=== PATIENT | female | born 1985 | race Caucasian/White ===

== ENCOUNTER 2024-08-25 07:31 | Emergency (ER) | payer OTHER, SELFPAY ==
[2024-08-25 07:40] VITALS: BP 119/87
[2024-08-25 08:09] VITALS: BP 122/87
[2024-08-25 08:10] VITALS: BMI 27.5
[2024-08-25 08:11] VITALS: BP 122/87
[2024-08-25] MEDS: BENADRYL 50 MG IV (08:30)
[2024-08-25] MEDS: PEPCID 20 MG IV (08:30)
--- NOTE | 2024-08-25 08:31 | ED.GENMED ---
History of Present Illness
General
Chief Complaint: Allergic Reaction
Source: patient
Exam Limitations: none
Time Seen by Provider: 08/25/24 08:10
History of Present Illness
History of Present Illness:
39-year-old female presents with diffuse pruritus. She has a history of lichen planus. She is followed by dermatology. She has been on antihistamines without relief. She states when she is take steroids for this it comes back worse. She is
instructed not to take steroids for this. She is using a topical steroid. The itchiness is over the trunk arms and legs. She denies a fever sore throat chest pain nausea or vomiting. No other complaints at this
Past History
Past History
ED Past Medical History: None
ED Past Surgical History: and Orthopedic
Social History
Tobacco: Smoker
Alcohol: Occasional
Drug: None
Personal:
Living: with family
Employment: Employed
Family History
Family History: Other (n/c)
Phy Exam
Physical Exam
Physical Exam:
General: Well-appearing female no acute respiratory distress
HEENT: Normocephalic atraumatic
Heart: Regular rate and rhythm
Lungs: Clear no wheeze
Skin: Covered with excoriation evans over the back arms and legs. Small pruritic papules noted over the elbows and legs
Extremities: No cyanosis or edema
Course
Orders/Labs/Results
Orders:
Orders
08/25/24 08:26
Diphenhydramine [Benadryl] 50 mg IV NOW STA
Famotidine [Pepcid] 20 mg IV NOW STA
08/25/24 09:12
Lorazepam [Ativan] 1 mg IV NOW STA
08/25/24 11:19
Dexamethasone Sod Phosphate [Decadron] 10 mg IV NOW STA
Diphenhydramine [Benadryl] 25 mg IV NOW STA
Vital Signs
Initial and Last Documented VS:
Initial Vital Signs
Temp Pulse Resp BP Pulse Ox
98.2 F 110 16 119/87 98
08/25/24 07:40 08/25/24 07:40 08/25/24 07:40 08/25/24 07:40 08/25/24 07:40
Last Documented Vital Signs
Temp Pulse Resp BP Pulse Ox
98.6 F 81 20 122/87 100
08/25/24 08:11 08/25/24 08:11 08/25/24 08:11 08/25/24 08:11 08/25/24 08:15
MDM/Problems Addressed
Differential Diagnosis Includes:
Pruritus history of lichen planus. This could be acute exacerbation of her existing condition versus hives. No fever to suggest infectious source. Patient is limited to antihistamines. Will try Benadryl and Pepcid
*Critical Care Note
Total Time (30-74mins, 75-104mins- exclusive of procedures): Not Applicable
Update Note
Update Note:
Patient with minimal relief after IV Benadryl and Pepcid. Discussed with patient's dermatology of record. Given lack of results with antihistamines we did go ahead and provide a low-dose steroid prescription for her. She will take 10 mg of
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
ED Attending Note
-
Portions of this chart may have been created with voice recognition software.� Occasional wrong word or��sound alike� substitutions may have occurred due to the inherent limitations of voice recognition software.
Discharge Plan
Departure
Patient Disposition: Home (Routine Discharge)
Date of Disposition: 08/25/24
Time of Disposition: 11:52
Patient with high blood pressure during this ER visit?: No
Discharge Problem:
Pruritic condition
Instructions: Hives (DC)
Prescriptions:
New
prednisone 10 mg tablet
10 mg PO DAILY Qty: 14 0RF
No Action
ibuprofen 600 mg tablet
600 mg PO PRN PRN (Reason: pain)
sertraline [Zoloft] 100 mg Tablet
100 mg PO HS
bupropion HCl [Wellbutrin] 75 mg Tablet
75 mg PO DAILY
hydroxychloroquine [Plaquenil] 200 mg Tablet
200 mg PO HS
Referrals:
Peter Grant DO [Family Provider] -
Activity Restrictions/Additional Instructions:
Continue with antihistamines. Use prednisone as directed. Follow-up with your cattle dehorner
Interventions
Interventions:
*Risk Screen - Suicide Last Done: 08/25/24 07:40
*General Assessment Last Done: 08/25/24 08:11
*Neglect/Abuse Screening Last Done: 08/25/24 07:40
*ED- Fall Risk Assessment Last Done: 08/25/24 08:11
*ED COVID-19 Vaccine History Last Done: 08/25/24 08:11
ED- Cardiac Assessment Last Done: 08/25/24 08:11
ED- Pulmonary Assessment Last Done: 08/25/24 08:11
ED-Skin Assessment Last Done: 08/25/24 08:11
Discharge Date and Time
Print Language: DJIBOUTIAN
[2024-08-25 08:33] VITALS: BP 129/107
[2024-08-25 09:00] VITALS: BP 114/91
[2024-08-25] MEDS: ATIVAN 1 MG IV (09:21)
[2024-08-25] MEDS: DECADRON 10 MG IV (11:23)
[2024-08-25] MEDS: BENADRYL 25 MG IV (11:23)
[2024-08-25 12:06] VITALS: BP 131/82
== END 2024-08-25 12:09 | disposition home or self-care (01) ==
LOC: EMR 07:31
PROVIDERS: EMERGENCY PHYSICIAN Emergency Medicine; FAMILY PHYSICIAN Family Medicine
DX: L29.9 Pruritus, unspecified (principal); F17.200 Nicotine dependence, unspecified, uncomplicated; L43.9 Lichen planus, unspecified
CPT/HCPCS: 96374; 96375; 96376; 99284

== ENCOUNTER 2024-10-27 12:12 | Inpatient (IN) | payer OTHER, SELFPAY ==
[2024-10-27 06:49] VITALS: BP 109/65
[2024-10-27 07:19] VITALS: BMI 29.9
[2024-10-27] MEDS: TYLENOL 1000 MG PO (07:28)
[2024-10-27 07:31] LABS: COVID-19 Antigen Negative (Negative)
[2024-10-27] MEDS: TORADOL 15 MG IV ×2 (08:23→15:36)
[2024-10-27] MEDS: ZOFRAN 4 MG IV (08:24)
[2024-10-27 08:58] LABS: Lactic Acid 0.8 mmol/L (0.7-2.0)
[2024-10-27 09:00] LABS: Hemoglobin 12.9 g/dL (12.0-16.0); Mean Corp Hgb Conc. 33.1 g/dL (33.0-37.0); Mean Corpuscular Volume 84.8 fL (81.0-99.0); Mean Platelet Volume 10.1 fL (7.4-10.4); Platelet Count 230 10^3/uL (130-400); Red Cell Dist. Width 13.9 % (11.5-14.5); White Blood Cell Count 12.5 10^3/uL (4.8-10.8)
[2024-10-27 09:01] LABS: HCG, Serum Qualitative Screen Negative
[2024-10-27 09:03] LABS: ALT (SGPT) 22 U/L (0-35); AST (SGOT) 19 U/L (14-36); Albumin 4.2 g/dl (3.5-5.0); Alkaline Phosphatase 57 U/L (38-126); Blood Urea Nitrogen 10 mg/dl (7-17); Calcium 8.7 mg/dl (8.4-10.2); Carbon Dioxide 24 mmol/L (22-30); Chloride 109 mmol/L (98-107); Estimated Creatinine Clearance 102 ml/min; Glucose 115 mg/dl (70-99); Potassium 3.8 mmol/L (3.5-5.1); Sodium 137 mmol/L (135-145); Total Bilirubin 0.6 mg/dl (0.2-1.3); Total Protein 6.6 g/dl (6.3-8.2); eGFR > 60.00
--- NOTE | 2024-10-27 09:18 | ED.GENMED ---
History of Present Illness
General
Chief Complaint: Abdominal Symptoms
Time Seen by Provider: 10/27/24 07:31
History of Present Illness
History of Present Illness:
39-year-old female with no significant past medical history presenting to the emergency department for abdominal pain. Patient reports on evening she ate Chipotle and has since then had abdominal pain. She initially had some vomiting and
diarrhea, however now has been constipated. Reports history of cholecystectomy. Also reports fever, chills, headache. Denies known sick contacts. Denies any urinary complaints. She is currently on her menstrual cycle. Denies chest pain or
difficulty breathing. Denies additional complaints.
Past History
Past History
ED Past Medical History: None
ED Past Surgical History: and Orthopedic
Social History
Tobacco: Smoker
Alcohol: Occasional
Drug: None
Personal:
Living: with family
Employment: Employed
Family History
Family History: Other (n/c)
Phy Exam
Physical Exam
Physical Exam:
General: Well-appearing, no clinical signs of dehydration, nontoxic and in no acute distress
HEENT: protecting airway
Neck: appears supple
CV: Normal heart rate, regular rhythm
Resp: No accessory muscle use, no increased work of breathing
Abd: Soft and non-distended, generalized tenderness to the abdomen, no rebound or guarding.
Extremities: No deformities, no swelling
Neuro: alert, no focal neurologic deficit
: deferred
Rectal: deferred
Psych: Normal affect
Skin: Intact
Sepsis
Sepsis Screening
Sepsis Assessment: Sepsis
Sepsis Screen
Sepsis Screen: Sepsis
Date: 10/27/24
Time: 14:54
Course
Orders/Labs/Results
Orders:
Orders
10/27/24 06:59
COVID-19 Antigen Urgent
Source: Nasal Swab
Influenza A+B Rapid Molecular Urgent
ILDEFONSO Source: Nasal Swab
Specimen Description:
10/27/24 07:26
Acetaminophen [Tylenol] 1,000 mg .ROUTE .STK-MED ONE
10/27/24 07:27
Acetaminophen [Tylenol] 1,000 mg PO NOW STA
10/27/24 07:52
Ketorolac [Toradol] 15 mg IV NOW STA
Ondansetron Injectable [Zofran] 4 mg IV NOW STA
10/27/24 07:53
CT Abd/pelvis W Iv Cont Urgent
Comment:
Reason For Exam: generalized pain and fever after chipotle
Test Result ONCE
10/27/24 08:23
Complete Blood Count/With Diff Urgent
Comprehensive Metabolic Panel Urgent
HCG, Serum Qualitative Screen Urgent
Lactic Acid Q4H
Comment: CANCEL 2nd LACTIC ACID IF 1st LACTIC ACID IS LESS THAN 2
Lipase Urgent
Manual Differential Urgent
10/27/24 Lunch
Regular
At Your Request: Full Participation
10/27/24 10:43
Urinalysis Reflex To Culture Urgent
Date Specimen was Collected: 10/27/24
Time Specimen was Collected: 10:34
Urine Microscopic Reflex Cult Urgent
Urine Culture Urgent
ILDEFONSO Source: U
Specimen Description:
Date Specimen was Collected: 10/27/24
Time Specimen was Collected: 10:34
10/27/24 11:07
Cefepime HCl [Maxipime] 2,000 mg IV NOW STA
10/27/24 11:44
Lactated Ringers [Lr] 1,000 ml IV BOLUS
10/27/24 11:47
Blood Culture Q30M
ILDEFONSO Source: Blood/Venous
Specimen Description:
10/27/24 11:49
Blood Culture Q30M
ILDEFONSO Source: Blood/Venous
Specimen Description:
10/27/24 11:57
Admit/Transfer Patient As Directed
Co-Sign Provider:
Level of Care: Inpatient admission
Assign to:: Medical/Surgical
Physician / Group: Laverne
Diagnosis: Sepsis, pyelonephritis
Reason for Hospitalization: IVF, IV antibiotics
Expected length of stay greater than two midnights?: Yes
ELOS- Estimated Length of Stay in days: 2
I certify the patient meets the requirements for IP care: Yes
PRN Pain Medication Management As Directed
May give lesser potent ordered pain med per pt: Yes
preference::
Protocol:: Medication orders for pain may be administered in a
manner that supports deferring to patient preference
when the pt is:
- Requesting an ordered lesser potent pain medication.
Least to most potent pain medications are defined
as: acetaminophen < NSAID < tramadol < opioids
(morphine, oxycodone, hydromorphone).
- Requesting a lesser dose of the same medication IF
ORDERED.
- Requesting a less intrusive route of administration
if both routes are prescribed by the provider (PO <
IV).
10/27/24 12:01
Code Status As Directed
Resuscitation Status: Full Code
10/27/24 13:00
Lactated Ringers [Lr] 1,000 ml IV BOLUS
10/27/24 13:08
Acetaminophen [Tylenol] 650 mg PO Q6HPRN PRN
Ketorolac [Toradol] 15 mg IV Q6HPRN PRN
Lactated Ringers [Lr] 1,000 ml IV 100 mls/hr
Ondansetron Injectable [Zofran] 4 mg IV Q6HPRN PRN
10/27/24 13:08
Activity As Directed
Activity Level: Ambulate
DX Deep Vein Thrombosis Video Routine
10/27/24 18:00
Enoxaparin Sodium [Lovenox] 40 mg SC QPM
10/27/24 22:00
Cefepime HCl [Maxipime] 2,000 mg IV Q12H
Abnormal Lab Results
10/27/24 10/27/24
08:23 10:43
WBC 12.5 H 10^3/uL
(4.8-10.8)
Abs Neuts (Manual) 10.6 H 10^3/uL
(1.4-6.5)
Segmented Neutrophils 85 H %
(42-75)
Lymphocytes (Manual) 10 L %
(20-51)
Chloride 109 H mmol/L
(98-107)
Glucose 115 H mg/dl
(70-99)
Urine Ketones 1+ A
(Negative)
Ur Occult Blood Reflex 4+ A
(Negative)
Urine Nitrite (Reflex) Positive A
(Negative)
Leukocyte Esterase Rfl 3+ A
(Negative)
Urine RBC 3-6 A /HPF
(0-2)
Urine WBC (Reflex) 26-30 A /HPF
(0-5)
Urine Bacteria (Reflex) Many A
(Negative)
Urine Albumin (Reflex) 2+ A
(Neg - Trace)
10/27/24 08:23
10/27/24 08:23
Vital Signs
Initial and Last Documented VS:
Initial Vital Signs
Temp Pulse Resp BP Pulse Ox
102.1 F H 112 22 109/65 98
10/27/24 06:49 10/27/24 06:49 10/27/24 06:49 10/27/24 06:49 10/27/24 06:49
Last Documented Vital Signs
Temp Pulse Resp BP Pulse Ox
100.1 F 115 21 127/86 100
10/27/24 14:39 10/27/24 13:29 10/27/24 13:29 10/27/24 13:29 10/27/24 13:29
MDM/Problems Addressed
MDM/Problems Addressed:
39-year-old female presenting for abdominal pain and fever. Vital signs on arrival significant for fever and tachycardia.
On exam patient is in no acute distress. On exam, patient is no acute distress, generalized discomfort to the abdomen, right greater than left. Suspect likely enteritis given patient's symptoms, preceded by eating food. However in the setting of
fever, additional intra-abdominal process is a consideration. Will plan for laboratory analysis and CT imaging. IV fluids, Toradol, Zofran administered for symptoms.
11:00 -lactate within normal limits. Urine does show evidence of infection and CT is consistent with a right-sided pyelonephritis. Will start patient on antibiotics. Patient offered admission versus outpatient antibiotics for her symptoms and
presenting vital signs. Patient notes that she has been unable to tolerate food and liquid by mouth given her symptoms, persistent fevers. Lactate within normal limits, mild leukocytosis, lower suspicion for sepsis. However given patient's
symptoms, feel reasonable for admission for IV antibiotics.
*Critical Care Note
Total Time (30-74mins, 75-104mins- exclusive of procedures): Not Applicable
ED Attending Note
-
Portions of this chart may have been created with voice recognition software.� Occasional wrong word or��sound alike� substitutions may have occurred due to the inherent limitations of voice recognition software.
Discharge Plan
Departure
Patient Disposition: Admit
Date of Disposition: 10/27/24
Time of Disposition: 11:15
Presentation/result/management discussed w/ accepting MD/DO: Hospitalist
Patient with high blood pressure during this ER visit?: No
Condition: Fair
Discharge Problem:
Pyelonephritis of right kidney
Interventions
Interventions:
*Risk Screen - Suicide Last Done: 10/27/24 06:49
*General Assessment Last Done: 10/27/24 07:19
*Neglect/Abuse Screening Last Done: 10/27/24 07:19
*ED- Fall Risk Assessment Last Done: 10/27/24 07:19
*ED COVID-19 Vaccine History Last Done: 10/27/24 13:15
*Nursing Disposition Last Done: 10/27/24 12:58
QC-Uoycpr-Sjztpqcgqa Assessment Last Done: 10/27/24 07:19
Discharge Date and Time
Discharge Date/Time: 10/27/24 12:59
[2024-10-27 09:27] LABS: Absolute Neutrophils -Man Diff 10.6 10^3/uL (1.4-6.5); Band Neutrophils 0 % (0-3); Lymphocytes 10 % (20-51); Monocytes 5 % (2-9); Normal RBC Morphology Yes; Platelets Checked Yes; Segmented Neutrophils 85 % (42-75); Total Cells Counted 100
[2024-10-27 09:40] LABS: Lipase 44 U/L (23-300)
[2024-10-27 10:51] LABS: Urine Albumin 2+ (Neg - Trace); Urine Bilirubin Negative (Negative); Urine Character Clear (Clear); Urine Color Yellow; Urine Glucose Negative (Negative); Urine Ketone 1+ (Negative); Urine Leukocyte 3+ (Negative); Urine Nitrite Positive (Negative); Urine Occult Blood 4+ (Negative); Urine Urobilinogen Negative (Neg - 1+)
[2024-10-27 11:05] LABS: Urine Bacteria Many (Negative); Urine White Cell 26-30 /HPF (0-5)
[2024-10-27] MEDS: MAXIPIME 2000 MG IV ×2 (11:49→22:01)
[2024-10-27 11:57] VITALS: BP 107/80
[2024-10-27] MEDS: LR 1000 IV ×3 (11:59→23:23)
--- NOTE | 2024-10-27 12:04 | HPS.HSE ---
Family Physician
-
Family Physician: Aryan Beaver
Chief Complaint
-
Abdominal pain, nausea and vomiting
History of Present Illness
39-year-old female here complaining of abdominal pain, nausea and vomiting.
Symptoms started after eating [place] food.
Has a history of pyelonephritis, last episode was several years ago.
Denies any urinary complaints. Started developing right-sided flank pain in the past 24 hours. Associated fevers.
Medical History
Past Medical History
Past Medical History: Reports Other
Additional Past Medical History:
Pyelonephritis
Anxiety disorder
Lichen planus
Past Surgical History: Reports Gynocological and Orthopedic
Social History
Tobacco: Smoker
Alcohol: Occasional
Drug: None
Personal:
Living: With Family
Employment: Employed
Family History
Family History: Not pertinent
Allergies / Home Medications
Allergies reflects when Allergies were last updated in [facility].
Home Medications with original date entered in [facility]
Allergy/Medication List:
Allergies
Allergy/AdvReac Type Severity Reaction Status Date / Time
cefazolin sodium (From Ancef) Allergy Swelling Verified 10/27/24 06:49
sulfamethoxazole (From Allergy Anaphylaxis Verified 10/27/24 06:49
Bactrim)
trimethoprim (From Bactrim) Allergy Anaphylaxis Verified 10/27/24 06:49
Home Medications
bupropion HCl 75 mg tablet 75 mg PO DAILY 02/22/23
hydroxychloroquine 200 mg tablet (Plaquenil) 200 mg PO HS 02/22/23
ibuprofen 600 mg tablet 600 mg PO PRN PRN pain 02/22/23
sertraline 100 mg tablet (Zoloft) 100 mg PO HS 02/22/23
prednisone 10 mg tablet 10 mg PO DAILY #14 tabs 08/25/24
Review of Systems
-
History Source: Patient
A 12 point ROS was completed and negative except as noted: Yes
Physical Exam
Vital Signs
Vital Signs
Temp Pulse Resp BP Pulse Ox
98.5 F 100 16 107/80 100
10/27/24 09:49 10/27/24 11:57 10/27/24 11:57 10/27/24 11:57 10/27/24 11:57
Physical Exam
General: Well Developed, Well Nourished, Appears in Distress and Pain
HEENT: NormoCephalic, Anicteric and Moist mucous membranes
Respiratory: Clear
Cardiac: S1/S2 and Regular Rhythm
Breast: Deferred by me
GI: Soft, Non Tender and Non Distended
Musculoskeletal: No Clubbing, No Cyanosis and No Edema
Skin: Warm and Dry
Neuro: AO x 3
Hematologic/Lymphatic: No Lymphadenopathy
Psych: Calm
Laboratory Results
-
10/27/24 08:23
10/27/24 08:23
Laboratory Results
Lactic Acid Cancelled 10/27/24 12:00
Total Bilirubin 0.6 mg/dl (0.2-1.3) 10/27/24 08:23
AST 19 U/L (14-36) 10/27/24 08:23
ALT 22 U/L (0-35) 10/27/24 08:23
Alkaline Phosphatase 57 U/L (38-126) 10/27/24 08:23
Lipase 44 U/L (23-300) 10/27/24 08:23
Impression/Plan
-
Sepsis due to acute right pyelonephritis -has had recurrent right-sided pyelonephritis. Last episode was several years ago.
Hemodynamically stable. Admit to [facility]. Give IV fluid bolus for sepsis. Continue antibiotics. Check cultures.
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 Recommend outpatient follow-up with her urologist. She was seeing a urologist at [facility]. Discussed with patient.
Continue analgesics, antiemetics.
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
Obesity due to excess calories
Full code
[2024-10-27 13:12] VITALS: BMI 29.2
[2024-10-27] MEDS: TYLENOL 650 MG PO ×2 (13:26→18:37)
[2024-10-27 13:29] VITALS: BP 127/86
--- NOTE | 2024-10-27 13:40 | PTCARENOTE ---
Pt. brought up from ED via stretcher and admitted to . Admission and assessment complete. Pt. tearful and complaining of 9/10 pain to her RLQ radiating to her back. Pt. VS taken upon arrival to and was found to be febrile with a temp of 102.9
and HR 115. PRN Tylenol and dilaudid administered. IVF bolus 1 of 2 running. Pt. states that her pain is improving after receiving pain meds and she feels less 'feverish'. Repeat temp checked after 1 hour and was 100.1. Plan of care ongoing.
[2024-10-27] MEDS: DILAUDID 0.5 MG IV ×4 (13:45→23:28)
[2024-10-27 15:00] VITALS: BP 113/71
--- NOTE | 2024-10-27 15:03 | CM ---
CM met with pt bedside
Pt and her 8 y/o son reside with her mother and father in a 2 [address]
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
Pt is indep, no DMEs
Denies financial insecurities
PCP- Aryan Beaver
Rx- [facility]
Discharge Disposition- anticipate home no needs
[2024-10-27] MEDS: LR IV (20:05)
[2024-10-27] MEDS: STERILE WATER FOR INJECTION 10 ML IV (22:01)
[2024-10-27] MEDS: TORADOL 30 MG IV (22:01)
[2024-10-27 23:33] VITALS: BP 96/82
[2024-10-28 00:56] VITALS: BP 97/57
[2024-10-28] MEDS: TYLENOL 650 MG PO ×3 (03:04→18:21)
[2024-10-28 03:09] VITALS: BP 115/69
[2024-10-28] MEDS: DILAUDID 0.5 MG IV ×2 (03:32→07:32)
[2024-10-28] MEDS: TORADOL 30 MG IV (05:05)
[2024-10-28 07:37] VITALS: BP 98/61
--- NOTE | 2024-10-28 08:46 | W.PN.HOSP.TC ---
Today's Communication/Plan
-
Check labs
Continue antibiotics
Await cultures
Increase analgesics
Urology consult
Assessment / Plan
Assessment / Plan
Gen-AAOx3, in mild distress from pain
HEENT-NC, AT, anicteric, clear oral mm
Neck-supple
CV-reg, no M, +S1/S2
Lungs-clear B/L
Abd-soft, NT, ND, right flank tenderness
Ext-no edema
Musculoskeletal-no cyanosis, clubbing
Skin-warm and dry
Neuro-grossly non-focal
Psych-calm, cooperative
Sepsis due to acute right pyelonephritis - has had recurrent right-sided pyelonephritis. Last episode was several years ago.
Cultures pending. Will change to IV or ertapenem. Patient requesting urology consultation. Abdominal exam is benign but she does have right flank tenderness.
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 Recommend outpatient follow-up with her urologist. She was seeing a urologist at [facility]. Discussed with patient.
Continue analgesics, antiemetics.
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
Migraine headache -will change Toradol to ibuprofen. Continue antiemetics. She has a sulfa allergy, will avoid Compazine.
Obesity due to excess calories
Full code
Anticipated Discharge: > 48 hours
Subjective/Interval History
-
Date of Service: October 28, 2024
Patient seen and examined. Complaining of 10 out of 10 right-sided abdominal and flank pain. Headache.
Objective Data
-
Labs:
Laboratory Results
10/28/24
08:25
WBC Pending
Hgb Pending
Hct Pending
Plt Count Pending
Sodium Pending
Potassium Pending
Chloride Pending
Carbon Dioxide Pending
BUN Pending
Creatinine Pending
Glucose Pending
Calcium Pending
Total Bilirubin Pending
AST Pending
ALT Pending
Alkaline Phosphatase Pending
Vital Signs:
Vital Signs
Temp Pulse Resp BP Pulse Ox
99.4 F 95 14 98/61 99
10/28/24 07:37 10/28/24 07:37 10/28/24 07:37 10/28/24 07:37 10/28/24 07:37
I&O
10/27/24 10/28/24 10/29/24
06:59 06:59 06:59
Intake Total 570 / 570
Balance 570 / 570
Review of Systems
-
History Source: Patient
All other systems: Reviewed and negative
[2024-10-28 08:54] LABS: ALT (SGPT) 37 U/L (0-35); AST (SGOT) 26 U/L (14-36); Albumin 3.2 g/dl (3.5-5.0); Alkaline Phosphatase 48 U/L (38-126); Blood Urea Nitrogen 7 mg/dl (7-17); Calcium 8.3 mg/dl (8.4-10.2); Carbon Dioxide 24 mmol/L (22-30); Chloride 112 mmol/L (98-107); Estimated Creatinine Clearance 101 ml/min; Glucose 115 mg/dl (70-99); Sodium 139 mmol/L (135-145); Total Bilirubin 0.5 mg/dl (0.2-1.3); Total Protein 5.4 g/dl (6.3-8.2); eGFR > 60.00
[2024-10-28 09:35] LABS: % Basophils 0.3 % (0-2); % Eosinophils 0.2 % (0-6); % Immature Granulocytes 0.5 % (0-0.5); % Lymphocytes 12.8 % (20.5-51.1); % Monocytes 10.8 % (1.7-9.3); % Neutrophils 75.4 % (42.2-75.2); Absolute Immature Granulocytes 0.1 10^3/uL (0-0.05); Absolute Lymphocytes 1.4 10^3/uL (1.2-3.4); Absolute Monocytes 1.2 10^3/uL (0.1-0.6); Absolute Neutrophils 8.4 10^3/uL (1.4-6.5); Hematocrit 38.6 % (37.0-47.0); Hemoglobin 12.7 g/dL (12.0-16.0); Mean Corp Hgb Conc. 32.9 g/dL (33.0-37.0); Mean Corpuscular Hgb 28.2 pg (27.0-31.0); Mean Corpuscular Volume 85.6 fL (81.0-99.0); Mean Platelet Volume 10.2 fL (7.4-10.4); Nucleated Red Blood Cells % 0 %; Platelet Count 166 10^3/uL (130-400); Red Blood Cell Count 4.51 10^6/uL (4.20-5.40); Red Cell Dist. Width 13.9 % (11.5-14.5); White Blood Cell Count 11.2 10^3/uL (4.8-10.8)
[2024-10-28] MEDS: ZOFRAN 4 MG IV (09:59)
[2024-10-28] MEDS: MOTRIN 800 MG PO ×2 (09:59→16:01)
[2024-10-28] MEDS: INVANZ 60 MG IV (10:08)
[2024-10-28] MEDS: LR 1000 IV ×2 (10:11→20:49)
--- NOTE | 2024-10-28 11:24 | CONS.URO ---
Consultation
-
Date/Time Consultation Performed: 1124 10/28/24
Performing Provider: Peffer
Reason for Consultation: Pyelonephritis
Medical History
History of Present Illness
39F history of recurrent UTIs in the past
Prior history of known duplicated R collecting system and had some prior workup for reflux years ago (negative)
Currently followed by a urologist at [facility]
Last episode of pyelo was a few years ago and was on post coital antibiotic ppx which she has since stopped
Admitted with febrile UTI and R pyelonephritis
CT showed duplicated R collecting system with some cortical scarring and calyceal diverticulum
No hydronephrosis or obstructive uropathy
Past Medical History
Past Medical History: Other (Pyelonephritis Anxiety disorder Lichen planus)
Past Surgical History: Gynocological and Orthopedic
Social History
Tobacco: Smoker
Alcohol: Occasional
Living: With Family
Family History
Family History: Reviewed & Not Pertinent
Allergies/Home Medications
Allergies
Allergy/AdvReac Type Severity Reaction Status Date / Time
cefazolin sodium (From Ancef) Allergy Swelling Verified 10/27/24 06:49
sulfamethoxazole (From Allergy Anaphylaxis Verified 10/27/24 06:49
Bactrim)
trimethoprim (From Bactrim) Allergy Anaphylaxis Verified 10/27/24 06:49
Home Medications
�Medication �Instructions �Recorded �Confirmed �Type
bupropion HCl 75 mg tablet 75 mg PO DAILY 02/22/23 10/27/24 History
hydroxychloroquine 200 mg tablet 200 mg PO HS 02/22/23 10/27/24 History
(Plaquenil)
acetaminophen 500 mg tablet 500 mg PO DAILYPRN PRN mild pain 10/27/24 10/27/24 History
ibuprofen 200 mg tablet 400 mg PO DAILYPRN PRN mild pain 10/27/24 10/27/24 History
norethindrone (contraceptive) 0.35 0.35 mg PO DAILY 10/27/24 10/27/24 History
mg tablet (Jencycla)
omeprazole 20 mg capsule,delayed 20 mg PO DAILYPRN PRN gerd 10/27/24 10/27/24 History
release
peppermint oil 90 mg 90 mg PO DAILYPRN PRN IBS 10/27/24 10/27/24 History
capsule,delayed,extended release
(IBgard)
sertraline 25 mg tablet 25 mg PO HS 10/27/24 10/27/24 History
Physical Exam
Vital Signs
Vital Signs
Temp Pulse Resp BP Pulse Ox
102.2 F H 95 14 98/61 99
10/28/24 10:58 10/28/24 07:37 10/28/24 07:37 10/28/24 07:37 10/28/24 07:37
Lab / Testing Results
Laboratory Results
10/28/24 09:08
10/28/24 08:25
Physical Exam
General: Well Developed, Well Nourished and No Apparent Distress
Respiratory: Clear and Non Labored Respirations
GI: Soft and Non Tender
Neuro: AO x 3
Psych: Calm and Intact Judgement
Assessment / Plan
-
39F with recurrent UTI and R pyelonephritis
Duplicated R renal collecting system
- No obstructive uropathy requiring acute surgical intervention
- Pyelonephritis management per hospitalist - would recommend 10 day total abx course for complicated UTI
- Discussed she may benefit from some additional testing of the R kidney to ensure it drains adequately but I don't suspect she would need any reconstructive procedures
- Recommend follow up with her current urologist to discuss this as well as resuming post coital prophylaxis
Please reach out if any additional input needed
Data Reviewed
-
CT Scan: Image personally visualized and interpreted
Lab Data: Labs Reviewed
[2024-10-28] MEDS: DILAUDID 1 MG IV ×3 (11:58→20:49)
[2024-10-28] MEDS: WELLBUTRIN REGULAR RELEASE 75 MG PO (12:12)
[2024-10-28 14:58] VITALS: BP 96/67
[2024-10-28] MEDS: LR IV (18:21)
[2024-10-28] MEDS: PLAQUENIL 200 MG PO (22:19)
[2024-10-28] MEDS: ROXICODONE 5 MG PO (22:19)
[2024-10-28 23:00] VITALS: BP 110/70
--- NOTE | 2024-10-29 02:04 | PTCARENOTE ---
patient was asked and offered supplies for hygiene. But the patient stated that they took a shower earlier in the day, so they prefer to do hygiene the next day.
[2024-10-29 07:18] VITALS: BP 123/81
[2024-10-29 07:41] LABS: % Basophils 0.2 % (0-2); % Eosinophils 0.6 % (0-6); % Immature Granulocytes 0.5 % (0-0.5); % Lymphocytes 7.2 % (20.5-51.1); % Neutrophils 83.5 % (42.2-75.2); Absolute Eosinophils 0.1 10^3/uL (0-0.7); Absolute Immature Granulocytes 0.1 10^3/uL (0-0.05); Absolute Lymphocytes 0.8 10^3/uL (1.2-3.4); Absolute Monocytes 0.9 10^3/uL (0.1-0.6); Hematocrit 34.6 % (37.0-47.0); Hemoglobin 11.4 g/dL (12.0-16.0); Mean Corp Hgb Conc. 32.9 g/dL (33.0-37.0); Mean Corpuscular Hgb 27.6 pg (27.0-31.0); Mean Corpuscular Volume 83.8 fL (81.0-99.0); Mean Platelet Volume 10.7 fL (7.4-10.4); Nucleated Red Blood Cells % 0 %; Platelet Count 189 10^3/uL (130-400); Red Blood Cell Count 4.13 10^6/uL (4.20-5.40); Red Cell Dist. Width 13.8 % (11.5-14.5); White Blood Cell Count 10.8 10^3/uL (4.8-10.8)
[2024-10-29] MEDS: MOTRIN 800 MG PO (07:48)
[2024-10-29] MEDS: DILAUDID 1 MG IV ×2 (07:48→11:52)
[2024-10-29] MEDS: WELLBUTRIN REGULAR RELEASE 75 MG PO (07:49)
[2024-10-29] MEDS: ZOLOFT 25 MG PO (07:49)
[2024-10-29] MEDS: TYLENOL 650 MG PO (07:49)
[2024-10-29] MEDS: INVANZ 60 MG IV (08:56)
--- NOTE | 2024-10-29 12:16 | W.PN.HOSP.TC ---
Today's Communication/Plan
-
Continue with IV ertapenem for now
Ask ID for input
Trend fever curve
Assessment / Plan
Assessment / Plan
Gen-AAOx3, in mild distress from pain
HEENT-NC, AT, anicteric, clear oral mm
Neck-supple
CV-reg, no M, +S1/S2
Lungs-clear B/L
Abd-soft, NT, ND, right flank tenderness
Ext-no edema
Musculoskeletal-no cyanosis, clubbing
Skin-warm and dry
Neuro-grossly non-focal
Psych-calm, cooperative
#Sepsis due to acute right pyelonephritis - has had recurrent right-sided pyelonephritis. Last episode was several years ago.
IV ertapenem. Patient requesting urology consultation. Abdominal exam is benign but she does have right flank tenderness.
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 Recommend outpatient follow-up with her urologist. She was seeing a urologist at [facility]. Discussed with patient.
Continue analgesics, antiemetics.
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
Leukocytosis resolved
Urine culture with E. coli oneal sensitivity. Patient continue to spike fever on ertapenem- will ask ID for input. Unclear if will require IV antibiotics on discharge or not.
#Migraine headache -will change Toradol to ibuprofen. Continue antiemetics. She has a sulfa allergy, will avoid Compazine.
Obesity due to excess calories
Full code
Anticipated Discharge: 24 - 48 hours
Subjective/Interval History
-
Date of Service: October 29, 2024
states of R side flank pain
spiked fever earlier this morning again
Objective Data
-
Labs:
Laboratory Results
10/29/24
07:03
WBC 10.8
Hgb 11.4 L
Hct 34.6 L
Plt Count 189
Vital Signs:
Vital Signs
Temp Pulse Resp BP Pulse Ox
98.2 F 110 19 123/81 99
10/29/24 11:06 10/29/24 07:18 10/29/24 07:18 10/29/24 07:18 10/29/24 07:18
I&O
10/28/24 10/29/24 10/30/24
06:59 06:59 06:59
Intake Total 570 / 570 2580 / 2580
Balance 570 / 570 2580 / 2580
[2024-10-29] MEDS: DILAUDID 1.5 MG IV ×3 (13:33→21:37)
[2024-10-29 15:22] VITALS: BP 96/59
--- NOTE | 2024-10-29 16:45 | CM ---
CM continues to follow for discharge planning. Pt currently on IV ertapenem; ID consult requested.
Plan: Anticipate discharge to home; watch for IV ABX needs to coordinate if needed at home when discharged.
[2024-10-29] MEDS: ROXICODONE 5 MG PO (19:52)
[2024-10-29] MEDS: PLAQUENIL 200 MG PO (21:38)
[2024-10-29 23:00] VITALS: BP 104/69
[2024-10-30 07:27] VITALS: BP 113/76
[2024-10-30] MEDS: DILAUDID 1.5 MG IV ×3 (07:41→20:02)
[2024-10-30] MEDS: WELLBUTRIN REGULAR RELEASE 75 MG PO (09:16)
[2024-10-30] MEDS: ZOLOFT 25 MG PO (09:16)
[2024-10-30] MEDS: ROXICODONE 5 MG PO ×2 (10:06→19:09)
[2024-10-30] MEDS: INVANZ 60 MG IV (10:06)
--- NOTE | 2024-10-30 12:07 | CON.ID ---
Consultation
-
Date/Time Consultation Requested: 10/29/24 11:36
Date/Time Consultation Performed: 10/30/24 12:07
Requesting Provider: Dr Bess
Performing Provider: Dr Burk
Reason for Consultation: UTI, allergies
Chief Complaint / Past History
Chief Complaint
Abdominal pain, nausea and vomiting
History of Present Illness
Ms Lund is a 39 year old female with history of recurrent UTIs and previous pyelonephritis, also stated allergies to cefazolin and bactrim who presented here on for abdominal pain, nausea and vomiting which she related to eating citizen of [place] food.
Then she progressed to developing right sided flank pain and fevers. No dysuria, urgency or frequency. With fevers and flank pain she presented to .
Since arrival here she was initially febrile to a tmax of 102.8, bp overall stable, wbc initially 12.5 now 10.8, hbgb 12.9, plt 230, L shift noted which has persisted, na 137, cr 0.7, lfts wnl, ua with 26-30 wbc/hpf and many bacteria, ct a/p with IV
contrast: acute R pyleonephritis, cortical scarring and lower pole calyceal diverticulum, duplicated R renal collecting system, currently on ertapenem, ID is consulted for assistance with management.
Past History
Additional Past Medical History:
Pyelonephritis
Anxiety disorder
Lichen planus
Additional Past Surgical History:
Gynocological and Orthopedic
Allergy History:
cefazolin sodium (From Ancef) Allergy (Verified 10/27/24 06:49)
Swelling
sulfamethoxazole (From Bactrim) Allergy (Verified 10/27/24 06:49)
Anaphylaxis
trimethoprim (From Bactrim) Allergy (Verified 10/27/24 06:49)
Anaphylaxis
Medications Reviewed: Yes
Social History
Tobacco: Smoker
Alcohol: Occasional
Drug: None
Family History
Family History: Not Pertinent
Review of Systems
Review of Systems
General: Fever and Chills
All systems: All other systems were reviewed and were negative
Vital Signs
Temp Pulse Resp BP Pulse Ox
98.6 F 82 17 113/76 96
10/30/24 07:27 10/30/24 07:27 10/30/24 07:27 10/30/24 07:27 10/30/24 07:27
Physical Exam
Physical Exam
Constitutional: Toxic
Cardiovascular: Regular Rate and S1/S2; Negative Murmur or Rub
Pulmonary: Clear and Symmetric; Negative Wheezes, Rales or Rhonchi
Gastrointestinal: Soft, Tender (right upper quadrant pain), Non Distended and Normal Bowel Sounds
Genito-Urinary: CVA Tenderness; Negative Suprapubic Tenderness
Skin: Warm and Dry; Negative Rash or Jaundice
Neurological: Awake
Lab / Diagnostic Study Results
10/29/24 07:03
10/28/24 08:25
Abs Immat Gran (auto) 0.1 10^3/uL (0-0.05) H 10/29/24 07:03
Absolute Neuts (auto) 9.0 10^3/uL (1.4-6.5) H 10/29/24 07:03
Absolute Lymphs (auto) 0.8 10^3/uL (1.2-3.4) L 10/29/24 07:03
Absolute Monos (auto) 0.9 10^3/uL (0.1-0.6) H 10/29/24 07:03
Absolute Basos (auto) 0.0 10^3/uL (0-0.2) 10/29/24 07:03
Total Counted 100 10/27/24 08:23
Immature Gran % 0.5 % (0-0.5) 10/29/24 07:03
Neutrophils % 83.5 % (42.2-75.2) H 10/29/24 07:03
Lymphocytes % 7.2 % (20.5-51.1) L 10/29/24 07:03
Monocytes % 8.0 % (1.7-9.3) 10/29/24 07:03
Eosinophils % 0.6 % (0-6) 10/29/24 07:03
Basophils % 0.2 % (0-2) 10/29/24 07:03
Abs Neuts (Manual) 10.6 10^3/uL (1.4-6.5) H 10/27/24 08:23
Segmented Neutrophils 85 % (42-75) H 10/27/24 08:23
Band Neutrophils 0 % (0-3) 10/27/24 08:23
Lymphocytes (Manual) 10 % (20-51) L 10/27/24 08:23
Lactic Acid Cancelled 10/27/24 12:00
Ur Squamous Epith Cells 6-10 /LPF (Few) 10/27/24 10:43
Microbiology Results
Micro:
10/27/24 11:47 Blood Culture - Preliminary
Blood/Venous No Growth in 72 hours- Final report to follow
10/27/24 11:49 Blood Culture - Preliminary
Blood/Venous No Growth in 72 hours- Final report to follow
10/27/24 10:43 Urine Culture - Final
Urine Escherichia coli
10/27/24 06:59 Influenza Types A & B (ZULEMA) - Final
Nasal Swab Negative for Influenza A & B, NAAT
Negative results must be combined with clinical observations
and patient history.
Nucleic Acid Amplification test (NAAT)performed on the
[employer] platform.
Assessment / Plan
Pyelonephritis due to E coli
h/o anaphylaxis with bactrim; cefazolin 'allergy' is unlikely
- blood cultures are no growth to date
- urine culture 100 K E coli - sensitive to cefazolin
- note history of cefazolin allergy is that she was intubated for an elective procedure, had perioperative cefazolin, then after extubation she noted a sore throat and attributed it to cefazolin, this is very unlikely to reflect a true allergy
-removed
- start ceftriaxone; patient reports she still feels quite ill and looks toxic, would continue IV for today
- likely deescalation to cefdinir tomorrow plan 14 day course 10/27-11/09
- follow up with PCP
--- NOTE | 2024-10-30 12:29 | CM ---
ID involved.
Pt continues on IV antibiotics..
Lives with her parents and child.
Independent [employer]ILD[employer].
PLAN Home no needs Watch for home infusion IV antibiotics needs
--- NOTE | 2024-10-30 13:37 | W.PN.HOSP.TC ---
Today's Communication/Plan
-
Antibiotics per ID
Continue to trend fever curve
Labs in the morning
Assessment / Plan
Assessment / Plan
Gen-AAOx3, in mild distress from pain
HEENT-NC, AT, anicteric, clear oral mm
Neck-supple
CV-reg, no M, +S1/S2
Lungs-clear B/L
Abd-soft, NT, ND, right flank tenderness
Ext-no edema
Musculoskeletal-no cyanosis, clubbing
Skin-warm and dry
Neuro-grossly non-focal
Psych-calm, cooperative
#Sepsis due to acute right pyelonephritis - has had recurrent right-sided pyelonephritis. Last episode was several years ago.
IV ertapenem. Patient requesting urology consultation. Abdominal exam is benign but she does have right flank tenderness.
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 Recommend outpatient follow-up with her urologist. She was seeing a urologist at [facility]. Discussed with patient.
Continue analgesics, antiemetics.
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
Leukocytosis resolved
Urine culture with E. coli oneal sensitivity.
Infectious disease on board. Patient started on IV ceftriaxone ertapenem discontinued with plan to switch to p.o. cefdinir on discharge. Monitor for additional 24 hours.
#Migraine headache -will change Toradol to ibuprofen. Continue antiemetics. She has a sulfa allergy, will avoid Compazine.
Obesity due to excess calories
Full code
Anticipated Discharge: Within 24 hours
Subjective/Interval History
-
Date of Service: October 30, 2024
Remains afebrile for 24 hours
States of right flank spasms and discomfort
Objective Data
-
Vital Signs:
Vital Signs
Temp Pulse Resp BP Pulse Ox
98.6 F 82 17 113/76 96
10/30/24 07:27 10/30/24 07:27 10/30/24 07:27 10/30/24 07:27 10/30/24 12:11
I&O
10/29/24 10/30/24 10/31/24
06:59 06:59 06:59
Intake Total 2580 / 2580 1320 / 1320
Balance 2580 / 2580 1320 / 1320
[2024-10-30] MEDS: STERILE WATER FOR INJECTION 20 IV (13:38)
[2024-10-30] MEDS: ROCEPHIN 2000 MG IV (13:38)
[2024-10-30 15:09] VITALS: BP 105/64
[2024-10-30] MEDS: ZOFRAN 4 MG IV (20:04)
[2024-10-30] MEDS: PLAQUENIL 200 MG PO (22:29)
[2024-10-30 23:00] VITALS: BP 94/61
[2024-10-31] MEDS: DILAUDID 1.5 MG IV ×2 (07:23→13:17)
[2024-10-31 07:25] VITALS: BP 104/67
[2024-10-31 07:29] LABS: % Basophils 0.4 % (0-2); % Eosinophils 2.3 % (0-6); % Immature Granulocytes 0.6 % (0-0.5); % Lymphocytes 20.3 % (20.5-51.1); % Monocytes 8.2 % (1.7-9.3); % Neutrophils 68.2 % (42.2-75.2); Absolute Eosinophils 0.2 10^3/uL (0-0.7); Absolute Lymphocytes 1.4 10^3/uL (1.2-3.4); Absolute Monocytes 0.6 10^3/uL (0.1-0.6); Absolute Neutrophils 4.7 10^3/uL (1.4-6.5); Hematocrit 33.9 % (37.0-47.0); Hemoglobin 11.3 g/dL (12.0-16.0); Mean Corp Hgb Conc. 33.3 g/dL (33.0-37.0); Mean Corpuscular Hgb 27.6 pg (27.0-31.0); Mean Corpuscular Volume 82.9 fL (81.0-99.0); Mean Platelet Volume 10.2 fL (7.4-10.4); Nucleated Red Blood Cells % 0 %; Platelet Count 260 10^3/uL (130-400); Red Blood Cell Count 4.09 10^6/uL (4.20-5.40); Red Cell Dist. Width 13.5 % (11.5-14.5); White Blood Cell Count 6.9 10^3/uL (4.8-10.8)
[2024-10-31 08:24] LABS: Glycohemoglobin (HgbA1c) 5.6 % (4.0-5.6)
[2024-10-31] MEDS: ZOLOFT 25 MG PO (08:36)
[2024-10-31] MEDS: WELLBUTRIN REGULAR RELEASE 75 MG PO (08:36)
[2024-10-31 08:56] LABS: Blood Urea Nitrogen 6 mg/dl (7-17); Calcium 8.4 mg/dl (8.4-10.2); Carbon Dioxide 23 mmol/L (22-30); Chloride 108 mmol/L (98-107); Estimated Creatinine Clearance 117 ml/min; Glucose 97 mg/dl (70-99); Potassium 3.9 mmol/L (3.5-5.1); Sodium 140 mmol/L (135-145); eGFR > 60.00
[2024-10-31] MEDS: ROXICODONE 5 MG PO (10:45)
--- NOTE | 2024-10-31 11:17 | W.PN.HOSP.TC ---
Today's Communication/Plan
-
Await ID recs
Continue with IV antibiotics with plan for p.o. antibiotics on discharge
Recommend outpatient urology follow-up
Assessment / Plan
Assessment / Plan
Gen-AAOx3, in mild distress from pain
HEENT-NC, AT, anicteric, clear oral mm
Neck-supple
CV-reg, no M, +S1/S2
Lungs-clear B/L
Abd-soft, NT, ND, right flank tenderness
Ext-no edema
Musculoskeletal-no cyanosis, clubbing
Skin-warm and dry
Neuro-grossly non-focal
Psych-calm, cooperative
#Sepsis due to acute right pyelonephritis - has had recurrent right-sided pyelonephritis. Last episode was several years ago.
IV ertapenem. Patient requesting urology consultation. Abdominal exam is benign but she does have right flank tenderness.
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 Recommend outpatient follow-up with her urologist. She was seeing a urologist at [facility]. Discussed with patient.
Continue analgesics, antiemetics.
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
Leukocytosis resolved. White count remains normal. Creatinine remains stable.
Urine culture with E. coli oneal sensitivity.
Infectious disease on board. Patient started on IV ceftriaxone with plan to switch to p.o. cefdinir on discharge. Patient remained afebrile while on ceftriaxone. Plan for 2 weeks of antibiotic course
#Migraine headache -will change Toradol to ibuprofen. Continue antiemetics. She has a sulfa allergy, will avoid Compazine.
Obesity due to excess calories
Full code
More than 30 minutes spent in discharge including
Final examination of the patient
Summarizing hospital stay
Instructions for continuing care to all relevant caregivers
Preparation of discharge records, prescriptions, and referral forms
Total time spent (in minutes): 52
Anticipated Discharge: Today
Subjective/Interval History
-
Date of Service: October 31, 2024
Patient states feels like her energy is coming back
remains with intermittent right flank pain
Objective Data
-
Labs:
Laboratory Results
10/31/24
07:05
WBC 6.9
Hgb 11.3 L
Hct 33.9 L
Plt Count 260 D
Sodium 140
Potassium 3.9
Chloride 108 H
Carbon Dioxide 23
BUN 6 L
Creatinine 0.6
Glucose 97
Calcium 8.4
Vital Signs:
Vital Signs
Temp Pulse Resp BP Pulse Ox
98.3 F 70 18 104/67 97
10/31/24 07:25 10/31/24 07:25 10/31/24 07:25 10/31/24 07:25 10/31/24 09:35
I&O
10/30/24 10/31/24 11/01/24
06:59 06:59 06:59
Intake Total 1320 / 1320 1320 / 1320
Balance 1320 / 1320 1320 / 1320
[2024-10-31] MEDS: ROCEPHIN 2000 MG IV (13:17)
[2024-10-31] MEDS: STERILE WATER FOR INJECTION 20 IV (13:17)
--- NOTE | 2024-10-31 13:21 | W.DCSUMMARY ---
Discharge Summary
Discharge Data
Date of Admission: 10/27/24
Date of Discharge: 10/31/24
-
Pending Results: No
Hospital Course
39-year-old female past medical history of obesity due to excess calories, mood disorder who is presenting with right flank pain. Patient was found to have a acute right-sided pyelonephritis. Patient was started on broad-spectrum antibiotics.
Patient was eval by urology. Patient underwent CT abdomen pelvis. CT scan shows mild right lower pole renal cortical scarring and 1.2 cm right lower pole calyceal diverticulum likely secondary to previous pyelonephritis. Patient was eval by
urology and recommended no acute surgical intervention. Patient was persistently spiking fever and was started on ertapenem. Patient urine culture resulted with E. coli. Patient was also eval by infectious disease and antibiotics was de-escalated
to ceftriaxone. Patient remained persistently afebrile for 48 hours minimum. Blood cultures were negative. Patient was transition to p.o. antibiotics with plan for course for total of 14 days. Patient was recommended to follow-up outpatient
urology for secondary renal collection system
Discharge Plan
-
Patient Disposition: Home (Routine Discharge)
Discharge Diagnosis/Procedures: Sepsis due to acute right pyelonephritis
Suspected duplicated right renal collecting system
Condition: Fair
Diet: Regular
Activity: As tolerated
Driving Restrictions: As prior to admission
Referrals:
Aryan Beaver MD [Family Provider, Family Practice] - in less than 1 week
Avinash Jacobs MD [Active, Urology] - in one to two months
Prescriptions:
New
cefdinir 300 mg capsule
300 mg PO Q12H Qty: 18 0RF
Continued
bupropion HCl [Wellbutrin] 75 mg Tablet
75 mg PO DAILY
hydroxychloroquine [Plaquenil] 200 mg Tablet
200 mg PO HS
acetaminophen 500 mg Tablet
500 mg PO DAILYPRN PRN (Reason: mild pain)
ibuprofen 200 mg Tablet
400 mg PO DAILYPRN PRN (Reason: mild pain)
sertraline 25 mg Tablet
25 mg PO HS
omeprazole 20 mg Capsule,Delayed Release(Dr/Ec)
20 mg PO DAILYPRN PRN (Reason: gerd)
norethindrone (contraceptive) [Jencycla] 0.35 mg Tablet
0.35 mg PO DAILY
IBgard 90 mg Capsule,Delayed,Extend.Release
90 mg PO DAILYPRN PRN (Reason: IBS)
Discharge Date and Time
Print Language: LATVIAN
--- NOTE | 2024-10-31 14:25 | W.PN.ID1 ---
Date of Service
Date of Service: October 31, 2024
Today's Communication
- had ceftriaxone today, tomorrow deescalate to cefdinir tomorrow plan 14 day course 10/27-11/09
- follow up with PCP, stable for dc from ID perspective
Assessment / Plan
Pyelonephritis due to E coli
h/o anaphylaxis with bactrim
- blood cultures are no growth to date
- urine culture 100 K E coli - sensitive to cefazolin
- had ceftriaxone today, tomorrow deescalate to cefdinir tomorrow plan 14 day course 10/27-11/09
- follow up with PCP, stable for dc from ID perspective
Chief Complaint
-: UTI
Subjective / Review of Systems
afebrile
bp stable
no longer toxic appearing - better but not fully resolved
we discussed prevention
Vital Signs / Physical Exam
Vital Signs
Vital Signs
Temp Pulse Resp BP Pulse Ox
98.3 F 70 18 104/67 97
10/31/24 07:25 10/31/24 07:25 10/31/24 07:25 10/31/24 07:25 10/31/24 09:35
Physical Exam
Constitutional: No Acute Distress
Cardiovascular: Regular Rate and S1/S2; Negative Murmur or Rub
Pulmonary: Clear and Symmetric; Negative Wheezes or Rales
Gastrointestinal: Soft, Non Tender, Non Distended and Normal Bowel Sounds
Genito-Urinary: CVA Tenderness (mild right sided); Negative Suprapubic Tenderness
Skin: Warm and Dry; Negative Rash or Jaundice
Objective Data
Lab Data
Lab Results
10/31/24 07:05
10/31/24 07:05
Estimated Creat Clear 117 ml/min 10/31/24 07:05
Lactic Acid Cancelled 10/27/24 12:00
Total Bilirubin 0.5 mg/dl (0.2-1.3) 10/28/24 08:25
AST 26 U/L (14-36) 10/28/24 08:25
ALT 37 U/L (0-35) H 10/28/24 08:25
Alkaline Phosphatase 48 U/L (38-126) 10/28/24 08:25
Most recent labs reviewed.
Micro Results:
10/27/24 11:49 Blood Culture - Preliminary
Blood/Venous No Growth in 4 days- Final report to follow
10/27/24 11:47 Blood Culture - Preliminary
Blood/Venous No Growth in 4 days- Final report to follow
10/27/24 10:43 Urine Culture - Final
Urine Escherichia coli
10/27/24 06:59 Influenza Types A & B (ZULEMA) - Final
Nasal Swab Negative for Influenza A & B, NAAT
Negative results must be combined with clinical observations
and patient history.
Nucleic Acid Amplification test (NAAT)performed on the
[employer] platform.
Care Review
Plan reviewed with: Physician (Dr Maria Alejandra ball)
[2024-10-31 15:19] VITALS: BP 100/68
--- NOTE | 2024-10-31 15:30 | CM ---
CM following for discharge planning needs.
Plan: Pt cleared for discharge to home with plan for oral ABX.
No identified needs at discharge.
== END 2024-10-31 15:36 | disposition home or self-care (01) | DRG 872 ==
LOC: 3 WEST ACU 12:12
PROVIDERS: ADMITTING PHYSICIAN Hospitalist; ATTENDING PHYSICIAN Hospitalist; CONSULT PHYSICIAN Urology; EMERGENCY PHYSICIAN Student in an Organized Health Care Education/Training Program; FAMILY PHYSICIAN Family Medicine; OTHER PHYSICIAN Student in an Organized Health Care Education/Training Program
DX: A41.9 Sepsis, unspecified organism (principal); N10 Acute pyelonephritis; Q63.8 Other specified congenital malformations of kidney; K21.9 Gastro-esophageal reflux disease without esophagitis; K58.9 Irritable bowel syndrome, unspecified; F41.9 Anxiety disorder, unspecified; L43.9 Lichen planus, unspecified; F17.200 Nicotine dependence, unspecified, uncomplicated; Z88.1 Allergy status to other antibiotic agents; Z87.440 Personal history of urinary (tract) infections; Z90.49 Acquired absence of other specified parts of digestive tract; E66.09 Other obesity due to excess calories; Z68.29 Body mass index [BMI] 29.0-29.9, adult; Z11.52 Encounter for screening for COVID-19
CPT/HCPCS: 74177; 80048; 80053; 81003; 81015; 83036; 83605; 83690; 84703; 85025; 87040; 87077; 87086; 87186; 87502; 87811; 96361; 96374; 96375; 99285; 99406; J1335; Q9967

== ENCOUNTER 2024-11-15 20:09 | Observation (INO) | payer OTHER, SELFPAY ==
[2024-11-15 14:35] VITALS: BP 141/77
[2024-11-15 15:07] VITALS: BMI 28.9
[2024-11-15 15:27] LABS: % Basophils 0.6 % (0-2); % Eosinophils 1.3 % (0-6); % Immature Granulocytes 0.4 % (0-0.5); % Neutrophils 67.7 % (42.2-75.2); Absolute Basophils 0.1 10^3/uL (0-0.2); Absolute Eosinophils 0.1 10^3/uL (0-0.7); Absolute Lymphocytes 2.3 10^3/uL (1.2-3.4); Absolute Monocytes 0.6 10^3/uL (0.1-0.6); Absolute Neutrophils 6.5 10^3/uL (1.4-6.5); Hematocrit 40.3 % (37.0-47.0); Hemoglobin 13.1 g/dL (12.0-16.0); Mean Corp Hgb Conc. 32.5 g/dL (33.0-37.0); Mean Corpuscular Hgb 27.5 pg (27.0-31.0); Mean Corpuscular Volume 84.7 fL (81.0-99.0); Mean Platelet Volume 10.3 fL (7.4-10.4); Nucleated Red Blood Cells % 0 %; Platelet Count 329 10^3/uL (130-400); Red Blood Cell Count 4.76 10^6/uL (4.20-5.40); Red Cell Dist. Width 14.2 % (11.5-14.5); White Blood Cell Count 9.6 10^3/uL (4.8-10.8)
[2024-11-15 15:37] LABS: Urine Albumin 1+ (Neg - Trace); Urine Bilirubin 3+ (Negative); Urine Character Clear (Clear); Urine Color Orange; Urine Glucose Negative (Negative); Urine Ketone Negative (Negative); Urine Leukocyte Negative (Negative); Urine Nitrite Positive (Negative); Urine Occult Blood 1+ (Negative); Urine Urobilinogen 4+ (Neg - 1+)
[2024-11-15 15:43] LABS: Urine Bacteria Moderate (Negative); Urine Red Blood Cell 0-2 /HPF (0-2); Urine Squamous Cell 26-30 /LPF (Few); Urine White Cell 0-2 /HPF (0-5)
[2024-11-15 15:58] LABS: ALT (SGPT) 27 U/L (0-35); AST (SGOT) 24 U/L (14-36); Albumin 4.7 g/dl (3.5-5.0); Alkaline Phosphatase 62 U/L (38-126); Blood Urea Nitrogen 10 mg/dl (7-17); Calcium 9.7 mg/dl (8.4-10.2); Carbon Dioxide 21 mmol/L (22-30); Chloride 112 mmol/L (98-107); Estimated Creatinine Clearance 88 ml/min; Glucose 87 mg/dl (70-99); Potassium 4.3 mmol/L (3.5-5.1); Sodium 141 mmol/L (135-145); Total Bilirubin 0.9 mg/dl (0.2-1.3); Total Protein 7.2 g/dl (6.3-8.2); eGFR > 60.00
[2024-11-15] MEDS: ZOFRAN 4 MG IV (17:41)
[2024-11-15] MEDS: TORADOL 15 MG IV (17:42)
[2024-11-15] MEDS: UNASYN IV (17:44)
[2024-11-15] MEDS: NSS 1000 IV (18:34)
--- NOTE | 2024-11-15 18:47 | ED.GENMED ---
History of Present Illness
General
Chief Complaint: Flank Pain
Time Seen by Provider: 11/15/24 15:07
History of Present Illness
History of Present Illness:
39-year-old female with history of lichen planus on hydroxychloroquine presents the emergency department for evaluation of bilateral flank pain associated with dysuria and urgency. The urgency began yesterday and she started taking trimethoprim in
the hopes that this would prevent a UTI. Flank pain and fevers began today. She has been taking ibuprofen essentially every 4-6 hours to control fevers today. She was admitted to this hospital recently for pyelonephritis and treated with
cephalosporins
Past History
Past History
ED Past Medical History: None
ED Past Surgical History: and Orthopedic
Social History
Tobacco: Smoker
Alcohol: Occasional
Drug: None
Personal:
Living: with family
Employment: Employed
Family History
Family History: Other (n/c)
Review of Systems
Review of Systems
Allergies reviewed?: Yes
All Other Systems: ROS reviewed and negative except as documented in HPI and ROS
Phy Exam
Physical Exam
Physical Exam:
GEN: Well appearing, NAD, WDWN
HEENT: Oral mucosa moist, no scleral icterus
Cardiac: Regular rate and rhythm, no murmurs
Lung: No respiratory distress, no tachypnea
Abdomen: Soft, mildly tender to the entire abdomen, no rigidity, positive bilateral CVA tenderness
MSK: No gross deformity or injuries
Skin: Good color, no pallor or jaundice, no rashes
Neuro: AO x3, moves all extremities freely
Psych: Calm, cooperative
Course
Orders/Labs/Results
Orders:
Orders
11/15/24 15:04
Urinalysis Reflex To Culture Urgent
Date Specimen was Collected: 11/15/24
Time Specimen was Collected: 14:52
Urine Microscopic Reflex Cult Urgent
Urine Culture Urgent
ILDEFONSO Source: U
Specimen Description:
Date Specimen was Collected: 11/15/24
Time Specimen was Collected: 14:52
11/15/24 15:19
Complete Blood Count/With Diff Urgent
Comprehensive Metabolic Panel Urgent
11/15/24 16:57
Ampicillin/Sulbactam 3 G [Unasyn] 3 gm 0.9% Sodium Chloride 100 ml [Nss] 100 ml IV NOW
11/15/24 17:10
0.9% Sodium Chloride 1000 ml [Nss] 1,000 ml IV BOLUS
US Renal With Bladder Urgent
Comment:
Reason For Exam: BL flank pain
11/15/24 17:12
Ketorolac [Toradol] 15 mg IV NOW STA
Ondansetron Injectable [Zofran] 4 mg IV NOW STA
11/15/24 18:38
HYDROmorphone [Dilaudid] 0.25 mg IV NOW STA
Abnormal Lab Results
11/15/24 11/15/24
15:04 15:19
MCHC 32.5 L g/dL
(33.0-37.0)
Chloride 112 H mmol/L
(98-107)
Carbon Dioxide 21 L mmol/L
(22-30)
Ur Occult Blood Reflex 1+ A
(Negative)
Urine Nitrite (Reflex) Positive A
(Negative)
Urine Bilirubin 3+ A
(Negative)
Urine Urobilinogen 4+ A
(Neg - 1+)
Urine Bacteria (Reflex) Moderate A
(Negative)
Urine Albumin (Reflex) 1+ A
(Neg - Trace)
11/15/24 15:19
11/15/24 15:19
Vital Signs
Initial and Last Documented VS:
Initial Vital Signs
Temp Pulse Resp BP Pulse Ox
98.4 F 89 15 141/77 98
11/15/24 14:35 11/15/24 14:35 11/15/24 14:35 11/15/24 14:35 11/15/24 14:35
Last Documented Vital Signs
Temp Pulse Resp BP Pulse Ox
98.4 F 89 15 141/77 98
11/15/24 14:35 11/15/24 14:35 11/15/24 14:35 11/15/24 14:35 11/15/24 18:48
MDM/Problems Addressed
MDM/Problems Addressed:
Patient is clinically well-appearing however does have significant degree of pain. She was offered discharge to home after initial dose of IV antibiotics however she is concerned given that she was recently mated to this hospital for several days
with sepsis due to pyelonephritis and would prefer to be admitted. Will place in observation under the hospitalist service, gave Unasyn on the basis of her prior culture and the fact that she was treated with cephalosporins most recently
*Pulse Oximetry
SaO2: 98
Oxygen Mode of Delivery: Room air
Patient hypoxic: no
*Critical Care Note
Total Time (30-74mins, 75-104mins- exclusive of procedures): Not Applicable
ED Attending Note
-
Portions of this chart may have been created with voice recognition software.� Occasional wrong word or��sound alike� substitutions may have occurred due to the inherent limitations of voice recognition software.
Discharge Plan
Departure
Patient Disposition: Admit
Date of Disposition: 11/15/24
Time of Disposition: 19:13
Presentation/result/management discussed w/ accepting MD/DO: Hospitalist
Discharge Problem:
Pyelonephritis
Prescriptions:
No Action
bupropion HCl 75 mg Tablet
75 mg PO DAILY
hydroxychloroquine [Plaquenil] 200 mg Tablet
200 mg PO HS
acetaminophen 500 mg Tablet
500 mg PO DAILYPRN PRN (Reason: mild pain)
ibuprofen 200 mg Tablet
400 mg PO DAILYPRN PRN (Reason: mild pain)
sertraline 25 mg Tablet
25 mg PO HS
omeprazole 20 mg Capsule,Delayed Release(Dr/Ec)
20 mg PO DAILYPRN PRN (Reason: gerd)
norethindrone (contraceptive) [Jencycla] 0.35 mg Tablet
0.35 mg PO DAILY
IBgard 90 mg Capsule,Delayed,Extend.Release
90 mg PO DAILYPRN PRN (Reason: IBS)
cefdinir 300 mg capsule
300 mg PO Q12H Qty: 18 0RF
Referrals:
Peter Grant DO [Family Provider, Family Practice]
Interventions
Interventions:
*Risk Screen - Suicide Last Done: 11/15/24 14:35
*General Assessment Last Done: 11/15/24 14:35
*Neglect/Abuse Screening Last Done: 11/15/24 14:35
*ED- Fall Risk Assessment Last Done: 11/15/24 19:11
*ED COVID-19 Vaccine History Last Done: 11/15/24 14:35
EL-Yezskv-Jibfnbixyi Assessment Last Done: 11/15/24 15:10
ED-Female Genitourinary Assessment Last Done: 11/15/24 15:10
Discharge Date and Time
Print Language: IVORIAN
[2024-11-15] MEDS: DILAUDID 0.25 MG IV ×2 (18:50→23:14)
--- NOTE | 2024-11-15 19:32 | HPS.HSE ---
Family Physician
-
Family Physician: Peter Grant DO
Chief Complaint
-
Flank Pain
History of Present Illness
This is a 39-year-old female with past medical history of lichen planus on Plaquenil presenting to the emergency department with recurrent flank pain.
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
lower pole calyceal diverticulum that is thought to be secondary to her previous pyelonephritis. Patient was treated with IV antibiotics and sent home on oral antibiotics to complete the course of treatment.
The patient reports a history of frequent urinary tract infections but denies any history of kidney stones. She stated that her symptoms improved after finishing her antibiotics about 1 week ago. However starting last night she noted episode of
dysuria at the end of urination. Then this morning she started having bilateral flank pain. She reports nausea but no vomiting. She reports chills but denies having any fevers. She is quite concerned because she had a fever up to 104 on her last
admission.
Care in the emergency department she is currently afebrile with a temp of 98.4, she is hemodynamically stable with a blood pressure of 141/78 pulse was 89 she is satting 90% on room air.
CBC is completely unremarkable. Electrolytes BUN/creatinine are all within normal range.
UA is positive for blood, nitrites and bacteria but it is negative for leukocyte esterase and WBCs.
Medical History
Past Medical History
Past Medical History: Reports Other
Additional Past Medical History:
Pyelonephritis
Anxiety disorder
Lichen planus
Past Surgical History: Reports Gynocological and Orthopedic
Social History
Tobacco: Smoker
Alcohol: Occasional
Drug: None
Personal:
Living: With Family
Employment: Employed
Family History
Family History: Not pertinent
Allergies / Home Medications
Allergies reflects when Allergies were last updated in [facility].
Home Medications with original date entered in [facility]
Allergy/Medication List:
Allergies
Allergy/AdvReac Type Severity Reaction Status Date / Time
cefazolin sodium (From Ancef) Allergy Swelling Verified 10/27/24 06:49
sulfamethoxazole (From Allergy Anaphylaxis Verified 10/27/24 06:49
Bactrim)
trimethoprim (From Bactrim) Allergy Anaphylaxis Verified 10/27/24 06:49
Home Medications
bupropion HCl 75 mg tablet 75 mg PO DAILY 02/22/23
hydroxychloroquine 200 mg tablet (Plaquenil) 200 mg PO HS 02/22/23
ibuprofen 600 mg tablet 600 mg PO PRN PRN pain 02/22/23
sertraline 100 mg tablet (Zoloft) 100 mg PO HS 02/22/23
prednisone 10 mg tablet 10 mg PO DAILY #14 tabs 08/25/24
Review of Systems
-
History Source: Patient
A 12 point ROS was completed and negative except as noted: Yes
Physical Exam
Vital Signs
Vital Signs
Temp Pulse Resp BP Pulse Ox
98.4 F 89 15 141/77 98
11/15/24 14:35 11/15/24 14:35 11/15/24 14:35 11/15/24 14:35 11/15/24 18:48
Physical Exam
General: Well Developed, Well Nourished, Appears in Distress and Pain
HEENT: NormoCephalic, Anicteric and Moist mucous membranes
Respiratory: Clear
Cardiac: S1/S2 and Regular Rhythm
Breast: Deferred by me
GI: Soft, Non Tender and Non Distended
Musculoskeletal: No Clubbing, No Cyanosis and No Edema
Skin: Warm and Dry
Neuro: AO x 3
Hematologic/Lymphatic: No Lymphadenopathy
Psych: Calm
Laboratory Results
-
11/15/24 15:19
11/15/24 15:19
Laboratory Results
Total Bilirubin 0.9 mg/dl (0.2-1.3) 11/15/24 15:19
AST 24 U/L (14-36) 11/15/24 15:19
ALT 27 U/L (0-35) 11/15/24 15:19
Alkaline Phosphatase 62 U/L (38-126) 11/15/24 15:19
Data Reviewed
-
Ultrasound: Image Personally Visualized and interpreted
Lab Data: Labs Reviewed by me
Old Records: Reviewed
Impression/Plan
-
IMPRESSION:
39-year-old female with history of lichen planus on Plaquenil presenting to the emergency department with bilateral flank pain, dysuria and urinalysis positive for blood, bacteria and nitrites but negative for leukocyte esterase and WBCs. She is
afebrile, hemodynamically stable.
PLAN:
Flank pain -possible pyelonephritis/UTI. There is bacteriuria w/o pyuria but patient complains of bilateral flank pain and has hematuria. LMP 2 weeks ago. Renal/Bladder U/S is unremarkable for pyelo, stones, cyst, mass or hydronephrosis not c/w
pyelo. However cannot call it asymptomatic bacteriuria due to the flank pain and complaint of dysuria.
-Admit to MedSurg observation
-Repeat urinalysis is unchanged with bacteriuria w/o pyuria and + squamos cells.
- urine culture sent
-Prior urine culture here is E. coli that is generally sensitive, started on unasyn given recent cephalosporin use, will continue with Cefriaxone for now
- pain control and antiemetics
- continue tx for bladder spasms
- outpatient urology follow up for secondary renal collection system
DVT PPX - SCDs
Code status - Full code
[2024-11-15 19:56] VITALS: BP 115/79
[2024-11-15 20:36] LABS: Urine Albumin 1+ (Neg - Trace); Urine Bilirubin 2+ (Negative); Urine Character Clear (Clear); Urine Color Yellow; Urine Glucose Negative (Negative); Urine Ketone 1+ (Negative); Urine Leukocyte Negative (Negative); Urine Nitrite Positive (Negative); Urine Occult Blood 1+ (Negative); Urine Urobilinogen 3+ (Neg - 1+)
[2024-11-15 20:52] LABS: Urine Squamous Cell 16-20 /LPF (Few); Urine White Cell 0-2 /HPF (0-5)
[2024-11-15 20:53] LABS: Urine Bacteria Moderate (Negative)
[2024-11-15 22:16] VITALS: BMI 28.6
[2024-11-15 22:17] VITALS: BP 110/78
[2024-11-15 22:18] VITALS: BP 113/74
--- NOTE | 2024-11-15 22:18 | PTCARENOTE ---
Patient arrived around 21:15 via stretcher. AAOx3. C/o pain 11/06 to bilateral flank. Waiting for pharmacy to verify medications. Patient c/o about having a roommate who coughed and ' could possibly be contagious!' and demanded another room.
Hogshead Weigher made aware and spoke with patient. Patient transferred to room 402. Report given to RN.
--- NOTE | 2024-11-15 22:21 | TRANSFER ---
pt rec'd from 4W. pt ambulated independently to bed. pt AAOx3, VSS, c/o 12/06 bilateral flank pain. plan of care ongoing.
[2024-11-15] MEDS: NON-FORMULARY ITEM 0.35 MG PO (23:00)
[2024-11-15] MEDS: STERILE WATER FOR INJECTION 10 ML IV (23:01)
[2024-11-15] MEDS: PLAQUENIL 200 MG PO (23:01)
[2024-11-15] MEDS: ROCEPHIN 1000 MG IV (23:02)
[2024-11-16 07:00] VITALS: BP 100/67
[2024-11-16 07:15] LABS: Hematocrit 38.7 % (37.0-47.0); Hemoglobin 12.7 g/dL (12.0-16.0); Mean Corp Hgb Conc. 32.8 g/dL (33.0-37.0); Mean Corpuscular Hgb 27.7 pg (27.0-31.0); Mean Corpuscular Volume 84.5 fL (81.0-99.0); Mean Platelet Volume 10.4 fL (7.4-10.4); Platelet Count 290 10^3/uL (130-400); Red Blood Cell Count 4.58 10^6/uL (4.20-5.40); Red Cell Dist. Width 14.5 % (11.5-14.5); White Blood Cell Count 6.9 10^3/uL (4.8-10.8)
[2024-11-16 07:43] LABS: Blood Urea Nitrogen 8 mg/dl (7-17); Carbon Dioxide 21 mmol/L (22-30); Chloride 114 mmol/L (98-107); Estimated Creatinine Clearance 99 ml/min; Glucose 103 mg/dl (70-99); Potassium 4.5 mmol/L (3.5-5.1); Sodium 141 mmol/L (135-145); eGFR > 60.00
[2024-11-16 07:51] VITALS: BP 100/67
[2024-11-16] MEDS: DILAUDID 0.25 MG IV ×4 (07:57→21:51)
[2024-11-16] MEDS: TORADOL 10 MG IV ×2 (07:58→14:04)
[2024-11-16] MEDS: ZOLOFT 25 MG PO (07:59)
[2024-11-16] MEDS: WELLBUTRIN REGULAR RELEASE 75 MG PO (07:59)
[2024-11-16 09:16] LABS: HCG, Serum Qualitative Screen Negative
--- NOTE | 2024-11-16 13:16 | CM ---
Alert awake oriented patient who lives with her parents in a 2 story home with 4 steps to enter and 6 steps to bath bedroom. 8 yo old son. She is independent in working driving and all ADLs.No adaptive devices.Offered VN she declined
need.Observation letter reviewed with pt . Letter signed on chart.
PHARMACY [facility]
PCP DR Grant
PLAN Home no needs
[2024-11-16] MEDS: TYLENOL 1000 MG PO (14:02)
--- NOTE | 2024-11-16 14:04 | W.PN.HOSP.TC ---
Today's Communication/Plan
-
Await Urology and ID eval
Pain meds adjusted
Need to watch for constipation
Reported BM 11/15/24.
Assessment / Plan
Assessment / Plan
39-year-old female with flank pain and dysuria. Patient states that she was feeling better after he completed antibiotics for that but then all the pain came back. Denies any fever.
Ultrasound of the kidneys unremarkable kidney and bladder
CT scan 10/27/2024 showed pyelonephritis and duplicated right renal collecting system and also 1.2 cm right lower pole calyceal diverticulum likely secondary to previous pyelonephritis.
On examination patient was not in any acute distress
Cardiovascular system S1-S2 appreciated
Chest clear to auscultation
Abdomen -states that she has discomfort in the flank and also lower quadrants. Abdomen is soft and no guarding or rigidity noted on exam
No pedal edema
# Dysuria, flank pain, abdominal discomfort
Recently treated UTI
Ultrasound of the kidneys and bladder without any acute changes this admission
CT scan 10/27/2024 showed pyelonephritis and duplicated right renal collecting system and also 1.2 cm right lower pole calyceal diverticulum likely secondary to previous pyelonephritis.
Urine cultures pending
Continue ceftriaxone
Unclear why she still has all the symptoms. Ultrasound without any acute changes. She is asking for more medicines . Will request urology and infectious disease to kindly evaluate
I have also ordered Pyridium. Add more Tylenol. Continue Toradol. Add Ultram .Hold off on increasing narcotic medicines at this point without a clear reason.
EKG to check QTC
# Lichen planus-continue Plaquenil
# Anxiety/depression-continue sertraline, bupropion
# Smoker-cessation counseling
# DVT prophylaxis-Lovenox
# Full code
Discussed with nursing at bedside
D/W Urology
Part of this note was created using voice recognition system. Occasional wrong word or��sound alike� substitutions may have inadvertently occurred due to the inherent limitations of voice recognition software. If noted kindly bring it to my
attention for correction.
Anticipated Discharge: Within 24 hours
Subjective/Interval History
-
Date of Service: November 16, 2024
Objective Data
-
Labs:
Laboratory Results
11/16/24
06:52
WBC 6.9
Hgb 12.7
Hct 38.7
Plt Count 290
Sodium 141
Potassium 4.5
Chloride 114 H
Carbon Dioxide 21 L
BUN 8
Creatinine 0.7
Glucose 103 H
Calcium 9.0
Vital Signs:
Vital Signs
Temp Pulse Resp BP Pulse Ox
97.9 F 71 14 100/67 97
11/16/24 07:00 11/16/24 07:00 11/16/24 07:00 11/16/24 07:00 11/16/24 08:00
I&O
11/15/24 11/16/24 11/17/24
06:59 06:59 06:59
Intake Total 480 / 480
Balance 480 / 480
[2024-11-16 15:00] VITALS: BP 104/64
--- NOTE | 2024-11-16 15:18 | CON.ID ---
Consultation
-
Date/Time Consultation Requested: 11/16/2024 0829
Date/Time Consultation Performed: 11/16/2024 1500
Requesting Provider: Dr. Hays
Performing Provider: Dr. Castro
Reason for Consultation: Bilateral flank pain,? UTI
Chief Complaint / Past History
History of Present Illness
Archana Lund 39-year-old female being evaluated the request of Dr. Hays in regards to a complicated urinary tract infection. History is obtained from chart review, along with patient interview.
The patient is known to the Infectious Disease service, having been seen in the beginning of the month also for urinary tract infection.
Interview, she has a history of recurrent urinary tract infections including pyelonephritis reports multiple allergies including that to cefazolin and Bactrim. Cultures ultimately revealed the presence of E. coli. The patient was discharged on
10/31, to continue with a course of cefdinir through 11/09.
The patient presents back to the ER on 11/15 secondary to bilateral flank pain with noted dysuria and urinary urgency. She reported that the urinary urgency began on 11/14. She took trimethoprim (which she has for use post coitus) in the hopes that
this would prevent a urinary tract infection, but fevers, flank pain persisted. She presented to the hospital for further evaluation. Here, CBC did not reveal leukocytosis. Urinalysis revealed positive nitrates, but only 0-2 WBCs. Cultures are
pending. The patient is currently on ceftriaxone empirically.
Patient currently notes that she has suprapubic discomfort along with bilateral flank discomfort. She notes that her left flank feels like something is grabbing her kidney. She denies any fevers. She reports some headache. She denies any
pharyngitis. She denies any other abdominal pain other than already noted. She continues to feel some urgency, and some baseline urethral burning even when not urinating.
Past History
Additional Past Medical History:
Hx pyelonephritis
Anxiety disorder
Lichen planus
Additional Past Surgical History:
Right wrist ganglion surgery
Right hip surgery
Cholecystectomy
Allergy History:
sulfamethoxazole (From Bactrim) Allergy (Verified 11/15/24 21:36)
Anaphylaxis-throat swelling
trimethoprim (From Bactrim) Allergy (Verified 11/15/24 20:27)
Anaphylaxis
Medications Reviewed: Yes
Current Antibiotics:
Ceftriaxone 1 g IV every 24 hours
Social History
Tobacco: Smoker (1/2 PPD)
Alcohol: Occasional
Drug: None
Employment: Employed
Family History
Family History: Not Pertinent
Review of Systems
Vital Signs
Temp Pulse Resp BP Pulse Ox
97.9 F 71 14 100/67 97
11/16/24 07:00 11/16/24 07:00 11/16/24 07:00 11/16/24 07:00 11/16/24 08:00
Physical Exam
Physical Exam
Constitutional: No Acute Distress, Comfortable and Non-toxic
Eyes: No Conjunctival Hemorrhage and Sclera Anicteric
Oral: No Thrush and No Ulcers
Cardiovascular: Regular Rate and S1/S2; Negative S3/S4
Pulmonary: Clear; Negative Wheezes, Rales or Rhonchi
Gastrointestinal: Soft, Non Tender, Non Distended and Normal Bowel Sounds
Genito-Urinary: Suprapubic Tenderness and CVA Tenderness (B/L)
Extremities: Negative Edema, Cyanosis, Erythema, Splinter Hemorrhage or Janeway Lesions
Skin: Warm and Dry; Negative Rash or Jaundice
Neurological: Awake and Alert
Psychological: Calm
.
Lab / Diagnostic Study Results
11/16/24 06:52
11/16/24 06:52
Abs Immat Gran (auto) 0.0 10^3/uL (0-0.05) 11/15/24 15:19
Absolute Neuts (auto) 6.5 10^3/uL (1.4-6.5) 11/15/24 15:19
Absolute Lymphs (auto) 2.3 10^3/uL (1.2-3.4) 11/15/24 15:19
Absolute Monos (auto) 0.6 10^3/uL (0.1-0.6) 11/15/24 15:19
Absolute Basos (auto) 0.1 10^3/uL (0-0.2) 11/15/24 15:19
Immature Gran % 0.4 % (0-0.5) 11/15/24 15:19
Neutrophils % 67.7 % (42.2-75.2) 11/15/24 15:
Lymphocytes % 24.0 % (20.5-51.1) 11/15/24 15:
Monocytes % 6.0 % (1.7-9.3) 11/15/24 15:19
Eosinophils % 1.3 % (0-6) 11/15/24 15:
Basophils % 0.6 % (0-2) 11/15/24 15:19
Ur Squamous Epith Cells 16-20 /LPF (Few) 11/15/24 20:24
Microbiology Results
Micro:
11/15/24 15:04 Urine Culture - Final
Urine No Significant Growth
11/15/24 20:24 Urine Culture - Pending
Urine
Imaging:
11/15/2024 Renal ultrasound with bladder: There is no hydronephrosis of either kidney. No shadowing stones are demonstrated on either side. No aggressive renal mass demonstrated on either side. Renal cortical thickness is within normal limits
bilaterally, as is echogenicity of the renal cortices. The right kidney measures 9.6 x 4.6 x 4.6 cm in length. The left kidney measures 9.1 x 5.0 x 5.3 cm in length. Color Doppler imaging demonstrates intact blood flow to each kidney.
Sonographic images of the bladder demonstrate no large mucosal mass. Bilateral ureteral jets are demonstrated. No significant post void residual.
10/27/2024 CT abdomen/pelvis: There are bands of decreased attenuation and decreased enhancement in the lateral and posterior cortex of the midpole and lower pole of the right kidney surrounded by mild perinephric fat stranding consistent with a
striated nephrogram an acute pyelonephritis. There is no evidence for loculated perinephric fluid collection. There is a 6 mm cyst in the medial cortex of the upper pole of the right kidney. There is mild right lower pole scarring and a 1.2 cm right
lower pole calyceal diverticulum which could be secondary to previous pyelonephritis. There is no hydroureteronephrosis. 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 The pyelonephritis appears to involve the lower pole
renal collecting system.
Assessment / Plan
B/L flank pain of unclear etiology
Recent history of pyelonephritis; s/p course of antibiotics.
- Current urinalysis not consistent with infection. Urine culture negative.
Anxiety disorder
Lichen planus
Recommendations:
At present, etiology of ongoing bilateral flank pain is not clear. Current urinalysis not reflective of infection (no noted WBCs), and urine culture is no significant growth.
Can continue with current empiric antibiotics for now, but if cultures remain negative, would attempt to find another etiology of flank pain.
Await Urology input.
Follow white count and temperature curve.
Await pending cultures.
[2024-11-16] MEDS: NSS 1000 IV (16:21)
[2024-11-16] MEDS: Pyridium 100 MG PO ×2 (16:23→23:56)
--- NOTE | 2024-11-16 18:18 | W.PN.URO.CBU ---
Today's Communication / Plan
-
ct scan
Assessment / Plan
-
possible recurrent pyelo possible inflammation of pyelo possible abscess staring or pap necrosis Will repaet ct scan with and w/out iv contrast for now supportive care monitor renal ftn toradol
Diagnosis
-
Date of Service: November 16, 2024
-
Patient Diagnosis:e coli pyelo 2 weeks ago with left and rt renal parenchymal involvement. Has duplicated system john scarring Blood cxs neg ur cx pos. Did well went home but now increased lower abd and bilateral flank pain no fever no
chills nl wbc blood and repeat ur cx neg
Post Op Day:
Subjective
-
significant pain
Objective
-
Vital Signs
Temp Pulse Resp BP Pulse Ox
98.7 F 79 14 104/64 100
11/16/24 15:00 11/16/24 15:00 11/16/24 15:00 11/16/24 15:00 11/16/24 15:00
Intake and Output
11/15/24 11/16/24 11/17/24
06:59 06:59 06:59
Intake Total 480 / 480
Balance 480 / 480
Intake:
Oral fluids 480 / 480
Other:
Number of approximated MODERATE 2
amounts of urine
Laboratory Results
11/16/24 06:52
11/16/24 06:52
Review of Systems
-
Abdomen/GI: Abdominal Pain and Nausea
: Flank Pain and Bleeding
Physical Exam
-
General - well developed, well nourished, no acute distress
Chest - clear bilaterally
Abdomen - soft, non-tender, positive bowel sounds, no CVAT, no incisional pain or distention
Genitalia - normal
Rectal - normal
Skin - warm & dry with no rash
Neuro - AOx3, no motor deficits
Extremities - no clubbing, no cyanosis, no edema
Incision - clean, dry
Dressing - clean, dry, intact
Care Review
Data Reviewed
Discussed with: Hospitalist and Nursing
CT Scan: Image Pers Reviewed
--- NOTE | 2024-11-16 18:41 | PTCARENOTE ---
Received patient this am AAOx3. Pt complained of pain. Medicated with IV Dilaudid, Tylenol, or Toradol prn for pain with relief. IVF started as ordered. Pt tolerated diet well. Pt urinated and noted blood on toilet paper. Dr. Hays and
Flashner made aware. Lovenox held as per Dr. Hays and patient refused. made patient comfortable. Cont to assess patient status.
[2024-11-16] MEDS: ULTRAM 50 MG PO (20:03)
[2024-11-16] MEDS: NON-FORMULARY ITEM 1 MG PO (21:49)
[2024-11-16] MEDS: PLAQUENIL 200 MG PO (21:49)
[2024-11-16 23:12] VITALS: BP 104/60
[2024-11-16] MEDS: STERILE WATER FOR INJECTION 10 ML IV (23:56)
[2024-11-16] MEDS: ROCEPHIN 1000 MG IV (23:57)
[2024-11-17] MEDS: NSS 1000 IV ×2 (06:16→23:08)
[2024-11-17] MEDS: ULTRAM 50 MG PO ×3 (06:19→20:06)
[2024-11-17 06:59] LABS: Hematocrit 39.4 % (37.0-47.0); Hemoglobin 13.2 g/dL (12.0-16.0); Mean Corp Hgb Conc. 33.5 g/dL (33.0-37.0); Mean Corpuscular Hgb 27.8 pg (27.0-31.0); Mean Corpuscular Volume 83.1 fL (81.0-99.0); Mean Platelet Volume 10.3 fL (7.4-10.4); Platelet Count 272 10^3/uL (130-400); Red Blood Cell Count 4.74 10^6/uL (4.20-5.40); Red Cell Dist. Width 14.3 % (11.5-14.5); White Blood Cell Count 9.1 10^3/uL (4.8-10.8)
[2024-11-17 07:10] VITALS: BP 113/71
[2024-11-17 07:24] LABS: Blood Urea Nitrogen 12 mg/dl (7-17); Calcium 9.1 mg/dl (8.4-10.2); Carbon Dioxide 19 mmol/L (22-30); Chloride 116 mmol/L (98-107); Estimated Creatinine Clearance 99 ml/min; Glucose 109 mg/dl (70-99); Potassium 4.6 mmol/L (3.5-5.1); Sodium 141 mmol/L (135-145); eGFR > 60.00
[2024-11-17] MEDS: DILAUDID 0.25 MG IV ×3 (08:10→22:02)
[2024-11-17] MEDS: Pyridium 100 MG PO ×3 (08:18→23:12)
[2024-11-17] MEDS: ZOLOFT 25 MG PO (08:19)
[2024-11-17] MEDS: WELLBUTRIN REGULAR RELEASE 75 MG PO (08:19)
--- NOTE | 2024-11-17 10:21 | W.PN.ID1 ---
Date of Service
Date of Service: November 17, 2024
Today's Communication
DC abx.
See below.
Assessment / Plan
B/L flank pain, urinary sxs of unclear etiology
Recent history of pyelonephritis; s/p course of antibiotics.
- Current urinalysis not consistent with infection. Urine culture negative.
- Repeat CT a/p significant improvement of prior right pyelo, now mild residual
- DC abx. Dr. Rodriguez agrees.
- Consider Interstitial Cystitis work-up, cystoscopy, etc. Can follow-up with her Urologist or referral to Dr. Jeffrey Douglas.
Anxiety disorder
Lichen planus
Chief Complaint
-: Other (Urine symptoms)
Subjective / Review of Systems
C/o hematuria. Continues to have dysuria, bladder discomfort, bilateral flank pain R>L. C/o RLQ pain from ruptured cyst.
Vital Signs / Physical Exam
Vital Signs
Vital Signs
Temp Pulse Resp BP Pulse Ox
98.2 F 71 16 113/71 97
11/17/24 07:10 11/17/24 07:10 11/17/24 07:10 11/17/24 07:10 11/17/24 07:10
Physical Exam
Constitutional: No Acute Distress
Cardiovascular: Regular Rate and S1/S2
Pulmonary: Clear
Gastrointestinal: Soft, Tender (Mild rlq), Non Distended and Normal Bowel Sounds
Genito-Urinary: Suprapubic Tenderness (Mild) and CVA Tenderness (R >L)
Extremities: Negative Edema
Neurological: AO x 3
Objective Data
Lab Data
Lab Results
11/17/24 06:47
11/17/24 06:47
Estimated Creat Clear 99 ml/min 11/17/24 06:47
Total Bilirubin 0.9 mg/dl (0.2-1.3) 11/15/24 15:19
AST 24 U/L (14-36) 11/15/24 15:19
ALT 27 U/L (0-35) 11/15/24 15:19
Alkaline Phosphatase 62 U/L (38-126) 11/15/24 15:19
Most recent labs reviewed.
Micro Results:
11/15/24 15:04 Urine Culture - Final
Urine No Significant Growth
11/15/24 20:24 Urine Culture - Pending
Urine
Imaging:
11/16/24 CT a/p wo/w contrast: Very mild residual acute right pyelonephritis which has decreased since 10/27/2024.
2. No CT evidence for abscess, perinephric fluid collection, or hydronephrosis.
3. Duplicated right renal collecting system.
4. Mild chronic scarring in the lower pole of the right kidney.
5. Mild circumferential wall thickening in the descending colon, sigmoid colon, and rectum (either a mild colitis or underdistention of the colonic lumen).
6. 1.7 cm partially ruptured right corpus luteal cyst.
7. Mild peritoneal fluid in the pelvic cul-de-sac.
11/15/2024 Renal ultrasound with bladder: There is no hydronephrosis of either kidney. No shadowing stones are demonstrated on either side. No aggressive renal mass demonstrated on either side. Renal cortical thickness is within normal limits
bilaterally, as is echogenicity of the renal cortices. The right kidney measures 9.6 x 4.6 x 4.6 cm in length. The left kidney measures 9.1 x 5.0 x 5.3 cm in length. Color Doppler imaging demonstrates intact blood flow to each kidney.
Sonographic images of the bladder demonstrate no large mucosal mass. Bilateral ureteral jets are demonstrated. No significant post void residual.
10/27/2024 CT abdomen/pelvis: There are bands of decreased attenuation and decreased enhancement in the lateral and posterior cortex of the midpole and lower pole of the right kidney surrounded by mild perinephric fat stranding consistent with a
striated nephrogram an acute pyelonephritis. There is no evidence for loculated perinephric fluid collection. There is a 6 mm cyst in the medial cortex of the upper pole of the right kidney. There is mild right lower pole scarring and a 1.2 cm right
lower pole calyceal diverticulum which could be secondary to previous pyelonephritis. There is no hydroureteronephrosis. 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 The pyelonephritis appears to involve the lower pole
renal collecting system.
Care Review
Plan reviewed with: Physician (Drs. Hilton and Saúl)
--- NOTE | 2024-11-17 10:43 | W.PN.URO.CBU ---
Today's Communication / Plan
-
send ur for cx plan per hospitalist but ok for d/c from [facility]
Assessment / Plan
-
pt with discomfort but no fevrchills nl wbc cxs neg and improved ct scan This suggest inflammation ongoing from original uti Pt requees rs maurizio i agre would repeat s[cx and dischage when ok by hospitalist no bab but analgesics
Diagnosis
-
Date of Service: November 17, 2024
-
Patient Diagnosis:
Post Op Day:
Patient Diagnosis:e coli pyelo 2 weeks ago with left and rt renal parenchymal involvement. Has duplicated system john scarring Blood cxs neg ur cx pos. Did well went home but now increased lower abd and bilateral flank pain no fever no
chills nl wbc blood and repeat ur cx neg
Post Op Day:
Subjective
-
still pain hematuria cxs neg ct scan reviewed and improved
Objective
-
Vital Signs
Temp Pulse Resp BP Pulse Ox
98.2 F 71 16 113/71 97
11/17/24 07:10 11/17/24 07:10 11/17/24 07:10 11/17/24 07:10 11/17/24 07:10
Intake and Output
11/16/24 11/17/24 11/18/24
06:59 06:59 06:59
Intake Total 480 / 480 2100 / 2100
Balance 480 / 480 2100 / 2100
Intake:
Oral fluids 480 / 480 1200 / 1200
IV fluids (Total) 900 / 900
Other:
Number of approximated MODERATE 2 3
amounts of urine
Number of approximated LARGE 10
amounts of urine
Laboratory Results
11/17/24 06:47
11/17/24 06:47
Review of Systems
-
Abdomen/GI: Abdominal Pain
: Frequency, Urgency and Dark Urine
Physical Exam
-
General - well developed, well nourished, no acute distress
Chest - clear bilaterally
Abdomen - soft, non-tender, positive bowel sounds, no CVAT, no incisional pain or distention
Genitalia - normal
Rectal - normal
Skin - warm & dry with no rash
Neuro - AOx3, no motor deficits
Extremities - no clubbing, no cyanosis, no edema
Incision - clean, dry
Dressing - clean, dry, intact
Care Review
Data Reviewed
Discussed with: Infectious Disease and Nursing
CT Scan: Image Pers Reviewed
[2024-11-17] MEDS: PROTONIX 40 MG PO (11:23)
--- NOTE | 2024-11-17 11:24 | W.PN.HOSP.TC ---
Today's Communication/Plan
-
stool studies
Needs outpatient urogyn follow-up
Possible discharge tomorrow
Assessment / Plan
Assessment / Plan
39-year-old female with flank pain and dysuria. Patient states that she was feeling better after he completed antibiotics for that but then all the pain came back. Denies any fever.
Ultrasound of the kidneys unremarkable kidney and bladder
CT scan 10/27/2024 showed pyelonephritis and duplicated right renal collecting system and also 1.2 cm right lower pole calyceal diverticulum likely secondary to previous pyelonephritis.
CT abdomen and pelvis-very mild residual acute right pyelonephritis decreased since 10/27/2024. No abscess perinephric fluid collection or hydronephrosis. Duplicated right renal collecting system. Chronic scarring of the lower pole of the right
kidney. Mild circumferential wall thickening of the descending colon, sigmoid colon and rectum. 1.7 cm partially ruptured right corpus luteal cyst. Mild peritoneal fluid in the pelvic cul-de-sac. Previous cholecystectomy with mild intrahepatic
biliary dilatation.
On examination patient was not in any acute distress
Cardiovascular system S1-S2 appreciated
Chest clear to auscultation
Abdomen -states that she has discomfort in the flank and also lower quadrants. Abdomen is soft and no guarding or rigidity noted on exam
No pedal edema
# Dysuria, flank pain,lower quadrant pain,abdominal discomfort
Recently treated UTI
Ultrasound of the kidneys and bladder without any acute changes this admission
CT scan 10/27/2024 showed pyelonephritis and duplicated right renal collecting system and also 1.2 cm right lower pole calyceal diverticulum likely secondary to previous pyelonephritis.
Urine cultures neg
Ceftriaxone stopped
Ultrasound without any acute changes.
I have also ordered Pyridium, Tylenol and Ultram Continue Toradol
Stool studies with loose stools-states that she started getting sick after she ate a [employer] before all this started. With recent antibiotics we will also check C. difficile
# CT scan noted. Patient reporting loose stools therefore we will check stool studies to rule out colitis.
# Lichen planus-continue Plaquenil
# IBS
# Anxiety/depression-continue sertraline, bupropion
# Smoker-cessation counseling
# DVT prophylaxis-Lovenox was held because of patient seeing blood in the urine. Continue SCDs
# Full code
Discussed with nursing at bedside
D/W infectious disease
Part of this note was created using voice recognition system. Occasional wrong word or��sound alike� substitutions may have inadvertently occurred due to the inherent limitations of voice recognition software. If noted kindly bring it to my
attention for correction.
Anticipated Discharge: Within 24 hours
Subjective/Interval History
-
Date of Service: November 17, 2024
Objective Data
-
Labs:
Laboratory Results
11/17/24
06:47
WBC 9.1
Hgb 13.2
Hct 39.4
Plt Count 272
Sodium 141
Potassium 4.6
Chloride 116 H
Carbon Dioxide 19 L
BUN 12
Creatinine 0.7
Glucose 109 H
Calcium 9.1
Vital Signs:
Vital Signs
Temp Pulse Resp BP Pulse Ox
98.2 F 71 16 113/71 97
11/17/24 07:10 11/17/24 07:10 11/17/24 07:10 11/17/24 07:10 11/17/24 07:10
I&O
11/16/24 11/17/24 11/18/24
06:59 06:59 06:59
Intake Total 480 / 480 2099
Balance 480 / 480 2099
[2024-11-17] MEDS: ZOFRAN 4 MG IV ×2 (13:09→20:05)
[2024-11-17 15:29] VITALS: BP 104/66
--- NOTE | 2024-11-17 18:00 | PTCARENOTE ---
Pt reporting pain 6/10 RLQ and requesting pain medication. Pt is not due yet for ultram and refuses toradol. Other options for pain are tylenol and dilaudid and patient requesting dilaudid which was administered.
[2024-11-17] MEDS: TORADOL 10 MG IV (21:18)
[2024-11-17] MEDS: NON-FORMULARY ITEM 0.35 MG PO (22:01)
[2024-11-17] MEDS: PLAQUENIL 200 MG PO (22:01)
[2024-11-17 23:16] VITALS: BP 102/61
[2024-11-18] MEDS: ULTRAM 50 MG PO (06:30)
[2024-11-18 07:27] VITALS: BP 112/72
[2024-11-18] MEDS: WELLBUTRIN REGULAR RELEASE 75 MG PO (08:08)
[2024-11-18] MEDS: PROTONIX 40 MG PO (08:08)
[2024-11-18] MEDS: ZOLOFT 25 MG PO (08:08)
[2024-11-18] MEDS: Pyridium 100 MG PO (08:08)
[2024-11-18] MEDS: TORADOL 10 MG IV (08:09)
[2024-11-18] MEDS: DILAUDID 0.25 MG IV (10:29)
[2024-11-18 11:19] LABS: Urine Albumin Negative (Neg - Trace); Urine Bilirubin 1+ (Negative); Urine Character Clear (Clear); Urine Glucose Negative (Negative); Urine Ketone Negative (Negative); Urine Leukocyte Negative (Negative); Urine Nitrite Positive (Negative); Urine Specific Gravity 1.005 (<1.030); Urine Urobilinogen 2+ (Neg - 1+)
[2024-11-18 11:20] LABS: Urine Color Orange
[2024-11-18 11:21] LABS: Urine Occult Blood 3+ (Negative)
[2024-11-18 11:48] LABS: Urine Squamous Cell >30 /LPF (Few)
[2024-11-18 11:50] LABS: Urine Amorphous Seen
[2024-11-18 11:51] LABS: Urine Bacteria Moderate (Negative); Urine White Cell 0-2 /HPF (0-5)
[2024-11-18] MEDS: NSS IV (12:04)
--- NOTE | 2024-11-18 13:23 | W.PN.HOSP.TC ---
Today's Communication/Plan
-
Discharge
Assessment / Plan
Assessment / Plan
39-year-old female with flank pain and dysuria. Patient states that she was feeling better after he completed antibiotics for that but then all the pain came back. Denies any fever.
Ultrasound of the kidneys unremarkable kidney and bladder
CT scan 10/27/2024 showed pyelonephritis and duplicated right renal collecting system and also 1.2 cm right lower pole calyceal diverticulum likely secondary to previous pyelonephritis.
CT abdomen and pelvis-very mild residual acute right pyelonephritis decreased since 10/27/2024. No abscess perinephric fluid collection or hydronephrosis. Duplicated right renal collecting system. Chronic scarring of the lower pole of the right
kidney. Mild circumferential wall thickening of the descending colon, sigmoid colon and rectum. 1.7 cm partially ruptured right corpus luteal cyst. Mild peritoneal fluid in the pelvic cul-de-sac. Previous cholecystectomy with mild intrahepatic
biliary dilatation.
On examination patient was not in any acute distress
Cardiovascular system S1-S2 appreciated
Chest clear to auscultation
Abdomen -states that she has discomfort in the flank and also lower quadrants. Abdomen is soft and no guarding or rigidity noted on exam
No pedal edema
# Dysuria, flank pain,lower quadrant pain,abdominal discomfort on admission
Recently treated UTI
Ultrasound of the kidneys and bladder without any acute changes this admission
CT scan 10/27/2024 showed pyelonephritis and duplicated right renal collecting system and also 1.2 cm right lower pole calyceal diverticulum likely secondary to previous pyelonephritis.
Urine cultures neg
Ceftriaxone stopped
Ultrasound without any acute changes.
Continue Pyridium, Tylenol and Ultram Continue Toradol
Stool studies neg for C diff. Cx pending.
Pt has IBS.
Patient has 1 bowel movement every day not more than that
# Lichen planus-continue Plaquenil
# IBS
# Anxiety/depression-continue sertraline, bupropion
# Smoker-cessation counseling
# DVT prophylaxis-Lovenox was held because of patient seeing blood in the urine. Continue SCDs
# Full code
Discussed with nursing at bedside
Repeat urinalysis ordered by urology shows occult blood, positive nitrates, negative leukocyte esterase WBC 0-2 more than 30 squamous epithelial cells. Not consistent with infection. Patient was advised to call urology office for final results of
urine culture. Also follow-up with PCP for stool culture results. She was advised to follow-up with Dr. Douglas urology.
Discussed with Dr. Rodriguez. Okay for discharge with no antibiotics and call office for results of urine cultures.
Part of this note was created using voice recognition system. Occasional wrong word or��sound alike� substitutions may have inadvertently occurred due to the inherent limitations of voice recognition software. If noted kindly bring it to my
attention for correction.
Dictation- [id number]
Anticipated Discharge: Today
Subjective/Interval History
-
Date of Service: November 18, 2024
Objective Data
-
Vital Signs:
Vital Signs
Temp Pulse Resp BP Pulse Ox
98.7 F 66 16 112/72 99
11/18/24 07:27 11/18/24 07:27 11/18/24 07:27 11/18/24 07:27 11/18/24 08:10
I&O
11/17/24 11/18/24 11/19/24
06:59 06:59 06:59
Intake Total 2099 1679 / 1679
Output Total 720 / 720
Balance 2099 959 / 959
--- NOTE | 2024-11-18 15:07 | W.DS.TRANS ---
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
-
Discharge Instructions:
Discharge Diagnosis/Procedures Urinary symptoms
Lichen planus
IBS
Anxiety/depression
Diet As tolerated
Activity With assistance
Driving Restrictions As prior to admission
Instructions:
Stand-Alone Forms:
Changes to Home Medications: Yes
Discharge Medications:
DC Medications w/original date entered in [facility]
bupropion HCl 75 mg tablet 75 mg PO DAILY Depression 02/22/23
hydroxychloroquine 200 mg tablet (Plaquenil) 200 mg PO HS Autoimmune Disorder 02/22/23
norethindrone (contraceptive) 0.35 mg tablet (Jencycla) 0.35 mg PO HS Hormonal Agent 10/27/24
peppermint oil 90 mg capsule,delayed,extended release (IBgard) 90 mg PO DAILYPRN PRN IBS 10/27/24
sertraline 25 mg tablet 25 mg PO DAILY Depression 10/27/24
Azo Bladder Supplement 1 tab PO DAILYPRN PRN bladder spasms 11/15/24
ibuprofen 125 mg-acetaminophen 250 mg tablet (Motrin Dual Action with Tylenol) 1 tab PO DAILYPRN PRN mild pain 11/15/24
therapeutic multivitamin 1 tab PO DAILY Supplement 11/15/24
famotidine 20 mg tablet (Pepcid) 20 mg PO BID PRN when you take Ibuprofen #30 tabs 11/18/24
oxycodone 5 mg capsule 5 mg PO Q8H PRN moderate pain #12 caps 11/18/24
phenazopyridine 100 mg tablet 100 mg PO Q8 Urinary issue #12 tabs 11/18/24
polyethylene glycol 3350 17 gram oral powder packet 17 g PO DAILYPRN PRN constipation #0 ea 11/18/24
Home Medication Changes
new
MiraLAX, Pyridium, oxycodone, famotidine
Pending Results: Yes (urine culture)
[2024-11-18 15:45] VITALS: BP 113/70
--- NOTE | 2024-11-18 16:10 | CM ---
Patient with Dx Dysuria, flank pain,lower quadrant pain,abdominal discomfort Recently treated UTI. Per nurse; ambulatory by self in room.
Spoke with patient who was preparing for discharge. The patient says she feels ready for discharge home today. Her mother will provide transport home.
No CM d/c needs identified.
Plan home today.
== END 2024-11-18 16:24 | disposition home or self-care (01) ==
LOC: 4 EAST ACU 20:09
PROVIDERS: Emergency Medicine; Specialist; ADMITTING PHYSICIAN Internal Medicine; ATTENDING PHYSICIAN Hospitalist; EMERGENCY PHYSICIAN Emergency Medicine; FAMILY PHYSICIAN Family Medicine; OTHER PHYSICIAN Internal Medicine Infectious Disease
DX: N10 Acute pyelonephritis (principal); R10.9 Unspecified abdominal pain; F17.210 Nicotine dependence, cigarettes, uncomplicated; L43.9 Lichen planus, unspecified; F41.9 Anxiety disorder, unspecified; F32.A Depression, unspecified; K58.9 Irritable bowel syndrome, unspecified
CPT/HCPCS: 74178; 76770; 80048; 80053; 81003; 81015; 84703; 85025; 85027; 87045; 87046; 87086; 87324; 87427; 87449; 93005; 96361; 96365; 96375; 99284; 99406; G0378; Q9967